=== PATIENT | male | born 1980 | race Caucasian/White ===

== ENCOUNTER 2017-01-28 09:28 | Emergency (ER) | payer MEDICAID ==
[2017-01-28 09:45] VITALS: BP 160/94
[2017-01-28] MEDS ORDERED: Alum Hydrox/Mag Hydrox/Simeth 15 ML, Lidocaine 2% 15 ML PO ONE ×2 (09:56)
--- NOTE | 2017-01-28 09:59 | EDM.PDOC ---
[id number] Time Seen by Provider: 01/28/17 09:53 Source: Reports: Patient, Family History Limitations: Reports: No limitations - History of Present Illness INITIAL COMMENTS - FREE TEXT/NARRATIVE: 36-year-old male with intense pain on the right side of his throat, but 2 or 3/ 10 when at rest but increases to 8 or 9 while swallowing. He had a recent prolonged sinus congestion with postnasal drip but that seems to have improved. No cough or shortness of breath, denies any fever or chills. No trauma to the throat such as a scratch from food or foreign body. No nausea or vomiting. Severity: moderate Location: Reports: throat Quality: Reports: Sharp Improves with: Reports: Rest Worsens with: Reports: Other (Marked increase in pain with swallowing) Associated symptoms: Reports: other (No significant or appreciable voice change) . Denies: headaches, shortness of breath, cough, sputum, nausea/vomiting - Related Data Allergies/ADRs: Allergies Allergy/AdvReac Type Severity Reaction Status Date / Time amoxicillin trihydrate Allergy Rash Verified 01/10/16 00:10 [From Augmentin] cefaclor [From Ceclor] Allergy Rash Verified 01/10/16 00:10 erythromycin base Allergy Rash Verified 01/10/16 00:10 [Erythromycin Base] potassium clavulanate Allergy Rash Verified 01/10/16 00:10 [From Augmentin] azithromycin AdvReac Vomiting Verified 01/10/16 00:10 Home Meds: Home Meds Venlafaxine [Effexor] 75 mg PO BEDTIME 01/07/15 [History] Albuterol Sulfate [Proair Hfa] 8.5 gm IH Q4HR PRN 01/10/16 [History] Cholecalciferol (Vitamin D3) [Vitamin D] 5,000 unit PO DAILY 01/10/16 [History] Ergocalciferol (Vitamin D2) [Vitamin D2] 50,000 units PO DAILY 01/10/16 [History ] Fluticasone/Salmeterol [Advair Diskus 100-50] 1 puff INH BID 01/10/16 [History] Ibuprofen 800 mg PO Q8H PRN 01/10/16 [History] busPIRone [Buspar] 5 mg PO TID 01/10/16 [History] Past Medical History - Past Health History Medical/Surgical History: Denies Medical/Surgical History Cardiovascular History: Reports: Hypertension Respiratory History: Reports: Asthma Musculoskeletal History: Reports: Fracture, Other (see below) Other Musculoskeletal History: Nose fracture "89 Neurological History: Reports: Concussion Psychiatric History: Reports: Depression Endocrine/Metabolic History: Reports: Obesity/BMI 30+ - Infectious Disease History Infectious Disease History: Reports: Chicken pox - Past Surgical History GI Surgical History: Reports: Cholecystectomy Social & Family History - Tobacco Use Smoking Status *Q: Never Smoker Years of Tobacco use: 8 Packs/Tins Daily: 0.5 Used Tobacco, but Quit: No Second Hand Smoke Exposure: No - Caffeine Use Caffeine Use: Reports: Energy drinks - Alcohol Use Days Per Week of Alcohol Use: 0 Number of Drinks Per Day: 1 Total Drinks Per Week: 0 - Recreational Drug Use Recreational Drug Use: No ED ROS ENT - Review of Systems Review Of Systems: See Below Constitutional: Denies: fever (Denies a fever, but currently his temperature is 100.4), chills, malaise, weakness HEENT: Reports: Throat pain Respiratory: Denies: Shortness of Breath, Cough Cardiovascular: Denies: Chest pain GI/Abdominal: Denies: Abdominal pain, Nausea, Vomiting Skin: Reports: no symptoms Neurological: Reports: No Symptoms ED EXAM, ENT - Physical Exam Exam: See Below Exam Limited By: No limitations General Appearance: alert, no apparent distress Eye Exam: bilateral eye: normal inspection Mouth/Throat: Other (Patient has some posterior pharyngeal erythema on the posterior lateral aspects, worse on the right) Neck: No: lymphadenopathy (R), lymphadenopathy (L) Respiratory/Chest: no respiratory distress, lungs clear Cardiovascular: regular rate, rhythm Neurological: alert, oriented Psychiatric: normal affect, normal mood Skin: Warm, Dry Course - Vital Signs Last Recorded V/S: Last Vital Signs Temp 100.4 F 01/28/17 09:45 Pulse 90 01/28/17 09:45 Resp 18 01/28/17 09:45 BP 160/94 H 01/28/17 09:45 Pulse Ox 95 01/28/17 09:45 - Orders/Labs/Meds Orders: Active Orders 24 hr Category Date Time Status CULTURE STREP A CONFIRMATION [RM] Routine Lab 01/28/17 09:59 Results STREP SCRN A RAPID W CULT CONF [RM] Routine Lab 01/28/17 09:59 Results Meds: Medications Discontinued Medications Generic Name Dose Route Start Last Admin Trade Name Rodri PRN Reason Stop Dose Admin Al Hydroxide/Mg Hydroxide 15 0 ml 01/28/17 09:56 01/28/17 09:59 ml/ Lidocaine HCl 15 ml PO 01/28/17 09:57 15 ml ONETIME ONE Administration - Re-Assessments/Exams Free Text/Narrative Re-Assessment/Exam: 01/28/17 10:12 Patient was given a GI cocktail for the topical anesthetic effect and a rapid strep was obtained prior to the medication. 01/28/17 10:25 Rapid strep was negative. GI cocktail gave him a small amount of subjective improvement. Patient will be discharged with 100 mL of viscous lidocaine to use as needed for pain and a course of Zithromax to cover atypicals. He'll return if worsening over the next several days. Departure - Departure Time of Disposition: 10:35 Disposition: Home, Self-Care 01 Condition: good Clinical Impression: Pharyngitis Qualifiers: Pharyngitis/tonsillitis etiology: other specified organisms Qualified Code(s): J02.8 - Acute pharyngitis due to other specified organisms Instructions: Sore Throat, [id number] Referrals: PCP,None [Primary Care Provider] - Forms: ED Department Discharge Care Plan Goals: Drink lots of fluids, take antibiotic as prescribed and use viscous lidocaine as needed for pain. Ibuprofen or naproxen will likely help as well. Consider rechecking in 3-4 days if not improving satisfactorily, or return anytime sooner if worsening such as difficulty breathing, fever, or inability to swallow. - My Orders Last 24 Hours: My Active Orders 01/28/17 09:59 CULTURE STREP A CONFIRMATION [RM] Routine STREP SCRN A RAPID W CULT CONF [RM] Routine - Assessment/Plan Last 24 Hours: My Active Orders 01/28/17 09:59 CULTURE STREP A CONFIRMATION [RM] Routine STREP SCRN A RAPID W CULT CONF [] Routine
== END 2017-01-28 10:35 | disposition home or self-care (01) ==
LOC: JP.ED 09:28
DX: J02.8 Acute pharyngitis due to other specified organisms (principal); I10 Essential (primary) hypertension; J45.909 Unspecified asthma, uncomplicated; F32.9 Major depressive disorder, single episode, unspecified; E66.9 Obesity, unspecified; Z68.41 Body mass index [BMI] 40.0-44.9, adult; Z90.49 Acquired absence of other specified parts of digestive tract; Z79.899 Other long term (current) drug therapy; Z88.1 Allergy status to other antibiotic agents; Z88.8 Allergy status to other drugs, medicaments and biological substances
CPT/HCPCS: 87081; 87430; 99283; A9270

== ENCOUNTER 2017-04-16 05:45 | Day surgery (SDC) | payer MEDICAID ==
[2017-04-16] MEDS ORDERED: fentaNYL 100 MCG/2 ML SDV ONE (07:30)
[2017-04-16] MEDS ORDERED: Propofol 200 MG/20 ML SDV ONE (07:30)
[2017-04-16] MEDS ORDERED: Dextrose 5%-Lactated Ringers 1,000 ML IV SCH (07:30)
[2017-04-16] MEDS ORDERED: Midazolam 1 MG/ML 2 ML SDV ONE (07:30)
[2017-04-16 10:03] VITALS: BP 149/100
--- NOTE | 2017-04-23 11:08 | OR ---
DATE OF PROCEDURE: 04/16/2017 PREOPERATIVE DIAGNOSIS: Rectal bleeding. POSTOPERATIVE DIAGNOSIS: Rectal bleeding secondary to excoriated hemorrhoids. OPERATIVE PROCEDURE: 1. Flexible colonoscopy (40895). 2. Hemorrhoid banding x2 (52359). ANESTHESIA: IV sedation. INDICATIONS FOR PROCEDURE: A 36-year-old male presenting with some ongoing rectal bleeding. This by history is most likely hemorrhoidal in nature, but no other pathology if colonoscopy is undertaken and then likely proceed with hemorrhoid banding. Potential risks including bleeding, infection, possible perforation as well as possible pain following hemorrhoid banding were all reviewed, and the patient wishes to proceed. DETAILS OF PROCEDURE: The patient was taken to the operating room and placed in the left lateral decubitus position. IV sedation was administered after which the initial digital rectal exam was performed and was unremarkable. Colonoscope was then passed into the rectum. Retroflexion showed more or less diffusely excoriated hemorrhoids. There was no obvious bleeding or single hemorrhoid column that appeared to be especially problematic in terms of likely bleeding source, however, the scope was then eventually passed to the level of the cecum. The prep was quite good with there only being a small amount of liquid stool present to that level. No additional abnormalities were noted. Specifically, no diverticula, no areas of colitis, and no polyps or other signs of neoplasia and no blood or bleeding seen. The scope was then withdrawn and the above findings reconfirmed and colonoscopy phase was then completed. The anoscope was then passed and two of the most prominent hemorrhoid columns were then sequentially banded without difficulty. Care was taken to maintain the level of banding above the dentate line to minimize postoperative discomfort and both bands were found to be nicely in place at the conclusion of the procedure. The patient was taken to the recovery room in satisfactory condition. Lavon Mccloud MD /[id number]
== END 2017-04-16 09:55 | disposition home or self-care (01) ==
LOC: JP.SDS 05:45
PROVIDERS: ATTEND Surgery
PROC: 06LY4CC Occlusion of Hemorrhoidal Plexus with Extraluminal Device, Percutaneous Endoscopic Approach (ICD-10-PCS; principal; 2017-04-16)
DX: K64.8 Other hemorrhoids (principal); R19.7 Diarrhea, unspecified; K92.1 Melena
CPT/HCPCS: 36415; 45398; 85027; J2250; J2704; J3010; J7042

== ENCOUNTER 2017-06-03 06:09 | Emergency (ER) | payer MEDICAID ==
[2017-06-03] MEDS ORDERED: Aspirin 81 MG Tab.Chew ONE (06:31)
[2017-06-03] MEDS ORDERED: Aspirin 81 MG Tab.Chew PO ONE (06:34)
[2017-06-03] MEDS ORDERED: Nitroglycerin 0.4 MG Tab.SL ONE (06:48)
[2017-06-03] MEDS ORDERED: Nitroglycerin 0.4 MG Tab.SL SL ONE (06:49)
[2017-06-03] MEDS ORDERED: Sodium Chloride 0.9% 10 ML Syringe FLUSH PRN (07:07)
--- NOTE | 2017-06-03 07:27 | EDM.PDOC ---
ED HPI GENERAL MEDICAL PROBLEM - General Chief Complaint: General Stated Complaint: LEFT ARM AND SOME CHEST PAIN Time Seen by Provider: 06/03/17 06:49 Source of Information: Reports: Patient History Limitations: Reports: No Limitations - History of Present Illness INITIAL COMMENTS - FREE TEXT/NARRATIVE: 29-year-old male with anxiety, past history of pleurisy woke up at 1:00 this morning with a sharp left-sided chest pain that hurt when he took a breath. No cough or fever. No abdominal pain, nausea or vomiting. Onset: Unknown/Unsure (Woke with pain at 1 AM) Location: Reports: Chest (Left chest) Severity: Moderate Worsens with: Reports: Breathing Associated Symptoms: Reports: No Other Symptoms (No other symptoms except anxiety, being treated for hypertension) - Related Data Allergies Allergy/AdvReac Type Severity Reaction Status Date / Time amoxicillin trihydrate Allergy Rash Verified 04/16/17 06:55 [From Augmentin] cefaclor [From Ceclor] Allergy Rash Verified 04/16/17 06:55 erythromycin base Allergy Rash Verified 04/16/17 06:55 [Erythromycin Base] potassium clavulanate Allergy Rash Verified 04/16/17 06:55 [From Augmentin] azithromycin AdvReac Vomiting Verified 04/16/17 06:55 Home Meds: Home Meds Venlafaxine [Effexor] 75 mg PO BEDTIME 01/07/15 [History] Albuterol Sulfate [Proair Hfa] 8.5 gm IH Q4HR PRN 01/10/16 [History] Ibuprofen 800 mg PO Q8H PRN 01/10/16 [History] busPIRone [Buspar] 5 mg PO DAILY 01/10/16 [History] Hydrochlorothiazide 06/03/17 [History] Past Medical History - Past Health History Medical/Surgical History: Denies Medical/Surgical History HEENT History: Reports: Allergic Rhinitis Cardiovascular History: Reports: Hypertension Respiratory History: Reports: Asthma, Bronchitis, Recurrent Gastrointestinal History: Reports: Hemorrhoids Musculoskeletal History: Reports: Fracture, Other (See Below) Other Musculoskeletal History: Nose fracture "89 Neurological History: Reports: Concussion Psychiatric History: Reports: Depression Endocrine/Metabolic History: Reports: Obesity/BMI 30+ - Infectious Disease History Infectious Disease History: Reports: Chicken Pox, Shingles - Past Surgical History HEENT Surgical History: Reports: None Cardiovascular Surgical History: Reports: None Respiratory Surgical History: Reports: None GI Surgical History: Reports: Cholecystectomy, EGD Endocrine Surgical History: Reports: None Neurological Surgical History: Reports: None Musculoskeletal Surgical History: Reports: None Social & Family History - Tobacco Use Smoking Status *Q: Never Smoker Years of Tobacco use: 8 Packs/Tins Daily: 0.5 Used Tobacco, but Quit: No Second Hand Smoke Exposure: No - Caffeine Use Caffeine Use: Reports: Soda - Alcohol Use Days Per Week of Alcohol Use: 1 Number of Drinks Per Day: 6 Total Drinks Per Week: 6 - Recreational Drug Use Recreational Drug Use: No ED ROS GENERAL - Review of Systems Review Of Systems: See Below Constitutional: Denies: Fever, Chills, Malaise Respiratory: Reports: Pleuritic Chest Pain. Denies: Shortness of Breath, Cough Cardiovascular: Reports: Chest Pain GI/Abdominal: Denies: Abdominal Pain, Nausea, Vomiting Skin: Reports: No Symptoms Neurological: Denies: Headache Psychiatric: Reports: No Symptoms ED EXAM, GENERAL - Physical Exam Exam: See Below Exam Limited By: No Limitations General Appearance: Alert, No Apparent Distress Eye Exam: Bilateral Eye: Normal Inspection Respiratory/Chest: No Respiratory Distress, Lungs Clear, Other (Cannot reproduce chest wall tenderness with palpation) Cardiovascular: Regular Rate, Rhythm GI/Abdominal: Non-Tender, Other (Patient is obese) Neurological: Alert, Oriented Psychiatric: Anxious Skin Exam: Warm, Dry EKG INTERPRETATION Rhythm: NSR Course - Vital Signs Last Recorded V/S: Last Vital Signs Temp 98.6 F 06/03/17 06:59 Pulse 101 H 06/03/17 08:06 Resp 16 06/03/17 08:06 BP 163/107 H 06/03/17 08:06 Pulse Ox 99 06/03/17 08:06 - Orders/Labs/Meds Orders: Active Orders 24 hr Category Date Time Status EKG Documentation Completion [RC] ASDIRECTED Care 06/03/17 07:08 Active Chest 1V Frontal [CR] Urgent Exams 06/03/17 07:07 Taken Saline Lock Insert [OM.PC] Urgent Oth 06/03/17 07:07 Ordered EKG 12 Lead [EK] Urgent Ther 06/03/17 07:07 Ordered Labs: Laboratory Tests 06/03/17 06/03/17 06/03/17 Range/Units 07:07 07:07 07:07 WBC 8.6 (4.5-11.0) K/uL RBC 5.21 (4.30-5.90) M/uL Hgb 15.9 H (12.0-15.0) g/dL Hct 47.6 (40.0-54.0) % MCV 91 (80-98) fL MCH 31 (27-31) pg MCHC 33 (32-36) % Plt Count 218 (150-400) K/uL Neut % (Auto) 72 H (36-66) % Lymph % (Auto) 20 L (24-44) % [place] % (Auto) 6 (2-6) % Eos % (Auto) 1 L (2-4) % Baso % (Auto) 1 (0-1) % D-Dimer, Quantitative < 100 (0.0-400.0) ng/mL Sodium 141 (140-148) mmol/L Potassium 4.1 (3.6-5.2) mmol/L Chloride 108 (100-108) mmol/L Carbon Dioxide 25 (21-32) mmol/L Anion Gap 8.0 (5.0-14.0) mmol/L BUN 13 (7-18) mg/dL Creatinine 1.2 (0.8-1.3) mg/dL Est Cr Clr Drug Dosing 97.04 mL/min Estimated GFR (MDRD) > 60 (>60) Glucose 125 H (74-106) mg/dL Calcium 8.7 (8.5-10.1) mg/dL Total Bilirubin 0.5 D (0.2-1.0) mg/dL AST 21 (15-37) U/L ALT 57 (12-78) U/L Alkaline Phosphatase 48 (46-116) U/L Troponin I < 0.017 (0.000-0.056) ng/mL Total Protein 7.1 (6.4-8.2) g/dL Albumin 3.6 (3.4-5.0) g/dL Globulin 3.5 (2.3-3.5) g/dL Albumin/Globulin Ratio 1.0 L (1.2-2.2) Meds: Medications Discontinued Medications Generic Name Dose Route Start Last Admin Trade Name Freq PRN Reason Stop Dose Admin Aspirin Confirm 06/03/17 06:31 06/03/17 07:09 Aspirin Administered 06/03/17 06:32 Not Given Dose 324 mg .ROUTE .STK-MED ONE Aspirin 324 mg 06/03/17 06:34 06/03/17 06:33 Aspirin PO 06/03/17 06:35 324 mg ONETIME ONE Administration Nitroglycerin 0.4 mg 06/03/17 06:49 06/03/17 06:51 Nitrostat SL 06/03/17 06:50 0.4 mg ONETIME ONE Administration Nitroglycerin Confirm 06/03/17 06:48 06/03/17 07:08 Nitrostat Administered 06/03/17 06:49 Not Given Dose 0.4 mg .ROUTE .STK-MED ONE Sodium Chloride 10 ml 06/03/17 07:07 06/03/17 07:14 Saline Flush FLUSH 10 ml ASDIRECTED PRN Administration Keep Vein Open - Re-Assessments/Exams Free Text/Narrative Re-Assessment/Exam: 06/03/17 07:52 Patient was given aspirin nitroglycerin and an EKG was done which was normal for his age and unchanged from previous. CBC CMP d-dimer and portable chest x- ray were obtained which were all reassuring are negative. Patient was encouraged to take an anti-inflammatory for the next few days to treat pleuritic pain, avoid any extra salt intake and continue with his antihypertensive medications which she was just started on a week ago. His blood pressure did normalize while in the emergency room but still was above acceptable levels chronically. Initial level was 157/110, on discharge 146/87 Departure - Departure Time of Disposition: 08:07 Disposition: Home, Self-Care 01 Condition: Good Clinical Impression: Pleurisy, Atypical chest pain - Discharge Information Instructions: Pleurisy, [id number] Referrals: PCP,None [Primary Care Provider] - Forms: ED Department Discharge Care Plan Goals: Increase activity as tolerated and continue your regular medications. An anti- inflammatory such as ibuprofen or naproxen should help for the next couple of days. Return if worsening or concerns.
[2017-06-03 08:07] VITALS: BP 163/107
--- NOTE | 2017-06-04 10:50 | CR ---
Chest 1V Frontal INDICATION: pain FINDINGS: Comparison 09/17/2014. Shallow inspiration. Chest otherwise negative.
== END 2017-06-03 08:07 | disposition home or self-care (01) ==
LOC: JP.ED 06:09
DX: R09.1 Pleurisy (principal); I10 Essential (primary) hypertension; J45.909 Unspecified asthma, uncomplicated; E66.9 Obesity, unspecified; Z90.49 Acquired absence of other specified parts of digestive tract; Z79.899 Other long term (current) drug therapy; Z88.1 Allergy status to other antibiotic agents; Z88.8 Allergy status to other drugs, medicaments and biological substances
CPT/HCPCS: 36415; 71010; 80053; 84484; 85025; 85379; 93005; 99285; A9270; J7050

== ENCOUNTER 2017-09-21 01:06 | Emergency (ER) | payer MEDICAID ==
[2017-09-21 01:33] VITALS: BP 148/94
[2017-09-21] MEDS ORDERED: Lactated Ringers 1,000 ML IV ONE (01:55)
[2017-09-21] MEDS ORDERED: Ketorolac 30 MG/ML SDV IVPUSH ONE (01:56)
[2017-09-21] MEDS ORDERED: diphenhydrAMINE 50 MG/ML SDV IVPUSH ONE (01:56)
[2017-09-21] MEDS ORDERED: Prochlorperazine 10 MG/2 ML SDV IVPUSH ONE (01:56)
--- NOTE | 2017-09-21 02:03 | EDM.PDOC ---
ED HPI GENERAL MEDICAL PROBLEM - General Chief Complaint: Headache Stated Complaint: MIGRAINE Time Seen by Provider: 09/21/17 01:50 Source of Information: Reports: Patient History Limitations: Reports: No Limitations - History of Present Illness INITIAL COMMENTS - FREE TEXT/NARRATIVE: 37 yo male with a more or less continuous MARTIN since last . Toradol in the clinic last reduced the MARTIN enough so he could sleep. MARTIN on the R side. Some nausea. No fever or neck pain. Has light sensitivity. Had not had a MARTIN since age 16 until this week. No recent head injury. No relief with ibuprofen, MARTIN worse tonight. Onset Date: 09/18/17 Duration: Day(s):, Waxing/Waning Location: Reports: Head Quality: Reports: Ache Severity: Severe Improves with: Reports: None Worsens with: Reports: None Context: Reports: Other (unknown) Associated Symptoms: Reports: Headaches, Nausea/Vomiting, Shortness of Breath ( for a few minutes tonight about 30 min before his headache flared.). Denies: Fever/Chills Treatments INSTRUCTOR DECORATING: Reports: NSAIDS, Other (see below) Other Treatments INSTRUCTOR DECORATING: none Head Pain Score (Numeric/FACES): 10 - Related Data Allergies Allergy/AdvReac Type Severity Reaction Status Date / Time amoxicillin trihydrate Allergy Rash Verified 09/21/17 01:58 [From Augmentin] cefaclor [From Ceclor] Allergy Rash Verified 09/21/17 01:58 erythromycin base Allergy Rash Verified 09/21/17 01:58 [Erythromycin Base] potassium clavulanate Allergy Rash Verified 09/21/17 01:58 [From Augmentin] azithromycin AdvReac Vomiting Verified 09/21/17 01:58 Home Meds: Home Meds Albuterol Sulfate [Proair Hfa] 8.5 gm IH Q4HR PRN 01/10/16 [History] Ibuprofen 800 mg PO Q8H PRN 01/10/16 [History] Acetaminop/Dichlphn/Isomethept [Midrin 325-100-65 MG] 1 cap PO ASDIRECTED #14 cap 09/21/17 [Rx] Aspirin [Adult Low Dose Aspirin EC] 81 mg PO DAILY 09/21/17 [History] Cyclobenzaprine [Flexeril] 10 mg PO TID PRN 09/21/17 [History] Escitalopram [Lexapro] 10 mg PO DAILY 09/21/17 [History] Lisinopril [Prinivil] 40 mg PO DAILY 09/21/17 [History] traMADol [Ultram] 50 mg PO Q6H PRN 09/21/17 [History] Past Medical History - Past Health History Medical/Surgical History: Denies Medical/Surgical History HEENT History: Reports: Allergic Rhinitis Cardiovascular History: Reports: Hypertension Respiratory History: Reports: Asthma, Bronchitis, Recurrent Gastrointestinal History: Reports: Hemorrhoids Musculoskeletal History: Reports: Fracture, Other (See Below) Other Musculoskeletal History: Nose fracture "89 Neurological History: Reports: Concussion Psychiatric History: Reports: Depression Endocrine/Metabolic History: Reports: Obesity/BMI 30+ - Infectious Disease History Infectious Disease History: Reports: Chicken Pox - Past Surgical History HEENT Surgical History: Reports: None Cardiovascular Surgical History: Reports: None Respiratory Surgical History: Reports: None GI Surgical History: Reports: Cholecystectomy, EGD Endocrine Surgical History: Reports: None Neurological Surgical History: Reports: None Musculoskeletal Surgical History: Reports: None Social & Family History - Tobacco Use Smoking Status *Q: Never Smoker Years of Tobacco use: 8 Packs/Tins Daily: 0.5 Used Tobacco, but Quit: No Second Hand Smoke Exposure: No - Caffeine Use Caffeine Use: Reports: Soda - Alcohol Use Days Per Week of Alcohol Use: 1 Number of Drinks Per Day: 6 Total Drinks Per Week: 6 - Recreational Drug Use Recreational Drug Use: Yes ED ROS GENERAL - Review of Systems Review Of Systems: See Below Constitutional: Reports: No Symptoms HEENT: Reports: Other (photophobia) Respiratory: Reports: No Symptoms Cardiovascular: Reports: No Symptoms GI/Abdominal: Reports: Nausea. Denies: Abdominal Pain, Black Stool, Bloody Stool, Constipation, Diarrhea, Difficulty Swallowing, Distension, Flatus, Hematemesis, Hematochezia, Melena, Vomiting : Reports: No Symptoms Musculoskeletal: Reports: No Symptoms Skin: Reports: No Symptoms Neurological: Reports: Headache Psychiatric: Reports: No Symptoms - Physical Exam Exam: See Below Exam Limited By: No Limitations General Appearance: Alert, WD/WN, No Apparent Distress, Obese Eye Exam: Bilateral Eye: Normal Inspection, PERRL Ears: Normal External Exam, Normal Canal, Hearing Grossly Normal, Normal TMs Nose: Normal Inspection, Normal Mucosa, No Blood Throat/Mouth: Normal Inspection, Normal Lips, Normal Teeth, Normal Oropharynx, Normal Voice, No Airway Compromise Head Exam: Atraumatic, Normocephalic Neck: Normal Inspection, Supple, Non-Tender Respiratory/Chest: No Respiratory Distress, Lungs Clear, Normal Breath Sounds, No Accessory Muscle Use Cardiovascular: Regular Rate, Rhythm, No Edema GI/Abdominal: Normal Bowel Sounds, Soft, Non-Tender, No Distention (Male) Exam: Normal Inspection Neuro Exam (Abbreviated): Alert, Oriented, CN II-XII Intact, Normal Cognition, No Motor/Sensory Deficits Back Exam: Normal Inspection. No: CVA Tenderness (R), CVA Tenderness (L) Extremities: Normal Inspection, Normal Range of Motion, Non-Tender, No Pedal Edema Psychiatric: Normal Affect, Normal Mood Skin Exam: Warm, Dry, Intact, Normal Color, No Rash Course - Vital Signs Last Recorded V/S: Last Vital Signs Temp 36.4 C 09/21/17 01:30 Pulse 95 09/21/17 01:30 Resp 17 09/21/17 01:30 BP 148/94 H 09/21/17 01:30 Pulse Ox 95 09/21/17 01:30 - Orders/Labs/Meds Orders: Active Orders 24 hr Category Date Time Status Head wo Cont [CT] Stat Exams 09/21/17 01:56 Taken Meds: Medications Discontinued Medications Generic Name Dose Route Start Last Admin Trade Name Rodri PRN Reason Stop Dose Admin Diphenhydramine HCl 25 mg 09/21/17 01:56 09/21/17 02:19 Benadryl IVPUSH 09/21/17 01:57 25 mg ONETIME ONE Administration Lactated Ringer's 1,000 mls @ 1,000 mls/hr 09/21/17 01:55 09/21/17 02:12 Ringers, Lactated IV 09/21/17 02:54 1,000 mls/hr BOLUS ONE Administration Ketorolac Tromethamine 30 mg 09/21/17 01:56 09/21/17 02:22 Toradol IVPUSH 09/21/17 01:57 30 mg ONETIME ONE Administration Prochlorperazine Edisylate 10 mg 09/21/17 01:56 09/21/17 02:14 Compazine IVPUSH 09/21/17 01:57 10 mg ONETIME ONE Administration - Radiology Interpretation Free Text/Narrative:: negative head CT scan CT Results Date: 09/21/17 CT Results Time: 03:00 Departure - Departure Time of Disposition: 03:30 Disposition: Home, Self-Care 01 Condition: Fair Clinical Impression: Migraine - Discharge Information Prescriptions: Acetaminop/Dichlphn/Isomethept [Midrin 325-100-65 MG] 1 cap PO ASDIRECTED #14 cap Referrals: Darshan Deluna MD [Primary Care Provider] - Forms: ED Department Discharge Additional Instructions: Use Midrin as directed for MARTIN. Recheck with your provider jared in the clinic. If you cannot get the Midrin or it does not work, then try Aleve 2 every 8 hrs with food as needed OR Excedrin Migraine per package instructions. Drink ample fluids. No driving tonight. - My Orders Last 24 Hours: My Active Orders 09/21/17 01:56 Head wo Cont [CT] Stat - Assessment/Plan Last 24 Hours: My Active Orders 09/21/17 01:56 Head wo Cont [CT] Stat
== END 2017-09-21 03:40 | disposition home or self-care (01) ==
LOC: JP.ED 01:06
DX: G43.909 Migraine, unspecified, not intractable, without status migrainosus (principal); J45.909 Unspecified asthma, uncomplicated; Z79.899 Other long term (current) drug therapy; Z88.1 Allergy status to other antibiotic agents; Z88.8 Allergy status to other drugs, medicaments and biological substances
CPT/HCPCS: 70450; 96361; 96374; 96375; 99284; J0780; J1200; J1885; J7120

== ENCOUNTER 2017-12-11 20:22 | Emergency (ER) | payer MEDICAID ==
[2017-12-11] MEDS ORDERED: Sodium Chloride 0.9% 10 ML Syringe FLUSH PRN (21:24)
--- NOTE | 2017-12-11 21:30 | EDM.PDOC ---
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 However no other symptoms. Was thinking at the lesion, this evening, and as he was leaving to go he started developing some chest and abdominal pain. He felt the need to go the bathroom so on the drive home, stopped his house where he passed loose stool which is usual for him and urinated but felt no better. It felt like still spikes were being given through each side of his chest with some radiation down into the abdomen. Associated with nausea but no retching, slight involvement of the back. He felt weak, finding it hard to get out of the car and move around. He did not notice any shortness of breath or change in the pain with breathing. Discomfort has continued but now feels like a dull ache on each side his chest becoming sharper is pain goes down into the abdomen. He has a history of previous cholecystectomy and previous kidney stone passed spontaneously in the clinic. Seen in May of last year for chest pain which was diagnosed with pleurisy, d- dimer at that time was negative. 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 His mom had peripheral vascular disease with arterial clots as well as an infarction and there is a strong family history of pancreatitis. Does not smoke but chews tobacco. bilateral chest pain and abdomen pain Pain Score (Numeric/FACES): 10 - Related Data Allergies Allergy/AdvReac Type Severity Reaction Status Date / Time amoxicillin trihydrate Allergy Rash Verified 12/11/17 20:35 [From Augmentin] cefaclor [From Ceclor] Allergy Rash Verified 12/11/17 20:35 erythromycin base Allergy Rash Verified 12/11/17 20:35 [Erythromycin Base] potassium clavulanate Allergy Rash Verified 12/11/17 20:35 [From Augmentin] azithromycin AdvReac Vomiting Verified 12/11/17 20:35 Home Meds: Home Meds Albuterol Sulfate [Proair Hfa] 8.5 gm IH Q4HR PRN 01/10/16 [History] Ibuprofen 800 mg PO Q8H PRN 01/10/16 [History] Acetaminop/Dichlphn/Isomethept [Midrin 325-100-65 MG] 1 cap PO ASDIRECTED #14 cap 09/21/17 [Rx] Cyclobenzaprine [Flexeril] 10 mg PO TID PRN 09/21/17 [History] Escitalopram [Lexapro] 10 mg PO DAILY 09/21/17 [History] Lisinopril [Prinivil] 40 mg PO DAILY 09/21/17 [History] traMADol [Ultram] 50 mg PO Q6H PRN 09/21/17 [History] Past Medical History - Past Health History Medical/Surgical History: Denies Medical/Surgical History HEENT History: Reports: Allergic Rhinitis Cardiovascular History: Reports: Hypertension Respiratory History: Reports: Asthma, Bronchitis, Recurrent Gastrointestinal History: Reports: Chronic Diarrhea, Hemorrhoids Musculoskeletal History: Reports: Fracture, Other (See Below) Other Musculoskeletal History: Nose fracture "89 Neurological History: Reports: Concussion Psychiatric History: Reports: Anxiety, Depression Endocrine/Metabolic History: Reports: Obesity/BMI 30+ - Infectious Disease History Infectious Disease History: Reports: Chicken Pox - Past Surgical History HEENT Surgical History: Reports: None Cardiovascular Surgical History: Reports: None Respiratory Surgical History: Reports: None GI Surgical History: Reports: Cholecystectomy, EGD Endocrine Surgical History: Reports: None Neurological Surgical History: Reports: None Musculoskeletal Surgical History: Reports: None Social & Family History - Tobacco Use Smoking Status *Q: Never Smoker Years of Tobacco use: 8 Packs/Tins Daily: 0.5 Used Tobacco, but Quit: No Second Hand Smoke Exposure: No - Caffeine Use Caffeine Use: Reports: Soda - Alcohol Use Days Per Week of Alcohol Use: 1 Number of Drinks Per Day: 6 Total Drinks Per Week: 6 Date of Last Drink: 12/11/17 - Recreational Drug Use Recreational Drug Use: No ED ROS GENERAL - Review of Systems Review Of Systems: See Below Constitutional: Reports: Malaise, Fatigue. Denies: Fever, Diaphoresis HEENT: Reports: No Symptoms Respiratory: Reports: Other (Chest pain, not pleuritic). Denies: Shortness of Breath, Cough Cardiovascular: Reports: Chest Pain (See history of present illness). Denies: Dyspnea on Exertion, Edema, Lightheadedness Endocrine: Reports: Fatigue GI/Abdominal: Reports: Abdominal Pain, Diarrhea (Chronic since his cholecystectomy), Nausea. Denies: Constipation, Decreased Appetite, Vomiting : Reports: No Symptoms Musculoskeletal: Reports: No Symptoms Skin: Reports: No Symptoms Neurological: Reports: Difficulty Walking, Other (Weak and tired, making it hard to walk). Denies: Confusion, Change in Speech Psychiatric: Reports: No Symptoms Hematologic/Lymphatic: Reports: No Symptoms Immunologic: Reports: No Symptoms ED EXAM, GENERAL - Physical Exam Exam: See Below Exam Limited By: No Limitations General Appearance: Alert, Anxious, Mild Distress, Other (Odor of alcohol, elevated blood pressure, other vital signs normal, no difficulty speaking or breathing) Eye Exam: Bilateral Eye: Conjunctival Injection (Mild bilateral), EOMI Ears: Normal External Exam, Hearing Grossly Normal Nose: Normal Inspection Throat/Mouth: Normal Inspection, Normal Oropharynx Head: Atraumatic, Normocephalic Neck: Normal Inspection, Full Range of Motion. No: Lymphadenopathy (R), Lymphadenopathy (L) Respiratory/Chest: No Respiratory Distress, Lungs Clear, Normal Breath Sounds, No Accessory Muscle Use, Other (Mild chest tenderness) Cardiovascular: Normal Peripheral Pulses, Regular Rate, Rhythm, No Murmur GI/Abdominal: Normal Bowel Sounds, Soft, No Distention, Tender, Other. No: Rigid, Rebound Back Exam: Normal Inspection Extremities: Normal Inspection Neurological: Alert, No Motor/Sensory Deficits Psychiatric: Anxious Skin Exam: Warm, Dry, Intact, Normal Color, No Rash Course - Vital Signs Last Recorded V/S: Last Vital Signs Temp 36.8 C 12/11/17 20:24 Pulse 82 12/11/17 22:35 Resp 12 12/11/17 22:35 BP 150/94 H 12/11/17 22:35 Pulse Ox 98 12/11/17 22:35 - Orders/Labs/Meds Orders: Active Orders 24 hr Category Date Time Status EKG Documentation Completion [RC] ASDIRECTED Care 12/11/17 21:33 Active Chest 1V Frontal [CR] Stat Exams 12/11/17 21:24 Taken Saline Lock Insert [OM.PC] Stat Oth 12/11/17 21:23 Ordered EKG 12 Lead [EK] Routine Ther 12/11/17 21:33 Ordered Labs: Laboratory Tests 12/11/17 12/11/17 12/11/17 Range/Units 21:34 21:34 21:34 WBC 7.4 (4.5-11.0) K/uL RBC 5.22 (4.30-5.90) M/uL Hgb 16.0 H (12.0-15.0) g/dL Hct 47.9 (40.0-54.0) % MCV 92 (80-98) fL MCH 31 (27-31) pg MCHC 33 (32-36) % Plt Count 195 (150-400) K/uL D-Dimer, Quantitative < 100 (0.0-400.0) ng/mL Sodium 144 (140-148) mmol/L Potassium 4.2 (3.6-5.2) mmol/L Chloride 107 (100-108) mmol/L Carbon Dioxide 30 (21-32) mmol/L Anion Gap 7.2 (5.0-14.0) mmol/L BUN 11 (7-18) mg/dL Creatinine 1.0 (0.8-1.3) mg/dL Est Cr Clr Drug Dosing 116.45 mL/min Estimated GFR (MDRD) > 60 (>60) Glucose 87 (74-106) mg/dL Calcium 8.6 (8.5-10.1) mg/dL Total Bilirubin 0.2 D (0.2-1.0) mg/dL AST 29 (15-37) U/L ALT 66 (12-78) U/L Alkaline Phosphatase 57 (46-116) U/L Troponin I < 0.017 (0.000-0.056) ng/mL Total Protein 6.7 (6.4-8.2) g/dL Albumin 3.6 (3.4-5.0) g/dL Globulin 3.1 (2.3-3.5) g/dL Albumin/Globulin Ratio 1.2 (1.2-2.2) Lipase 107 (73-393) U/L Urine Color Urine Appearance Urine pH (4.5-8.0) Ur Specific [place] (1.008-1.030) Urine Protein (NEGATIVE) mg/dL Urine Glucose (UA) (NEGATIVE) mg/dL Urine Ketones (NEGATIVE) mg/dL Urine Occult Blood (NEGATIVE) Urine Nitrite (NEGAITVE) Urine Bilirubin (NEGATIVE) Urine Urobilinogen (NORMAL) mg/dL Ur Leukocyte Esterase (NEGATIVE) Urine RBC (0-5) Urine WBC (0-5) Ur Epithelial Cells Amorphous Sediment Urine Bacteria Urine Mucus 12/11/17 Range/Units 22:14 WBC (4.5-11.0) K/uL RBC (4.30-5.90) M/uL Hgb (12.0-15.0) g/dL Hct (40.0-54.0) % MCV (80-98) fL MCH (27-31) pg MCHC (32-36) % Plt Count (150-400) K/uL D-Dimer, Quantitative (0.0-400.0) ng/mL Sodium (140-148) mmol/L Potassium (3.6-5.2) mmol/L Chloride (100-108) mmol/L Carbon Dioxide (21-32) mmol/L Anion Gap (5.0-14.0) mmol/L BUN (7-18) mg/dL Creatinine (0.8-1.3) mg/dL Est Cr Clr Drug Dosing mL/min Estimated GFR (MDRD) (>60) Glucose (74-106) mg/dL Calcium (8.5-10.1) mg/dL Total Bilirubin (0.2-1.0) mg/dL AST (15-37) U/L ALT (12-78) U/L Alkaline Phosphatase (46-116) U/L Troponin I (0.000-0.056) ng/mL Total Protein (6.4-8.2) g/dL Albumin (3.4-5.0) g/dL Globulin (2.3-3.5) g/dL Albumin/Globulin Ratio (1.2-2.2) Lipase (73-393) U/L Urine Color Yellow Urine Appearance Clear Urine pH 5.0 (4.5-8.0) Ur Specific [place] 1.010 (1.008-1.030) Urine Protein Negative (NEGATIVE) mg/dL Urine Glucose (UA) Normal (NEGATIVE) mg/dL Urine Ketones Negative (NEGATIVE) mg/dL Urine Occult Blood Negative (NEGATIVE) Urine Nitrite Negative (NEGAITVE) Urine Bilirubin Negative (NEGATIVE) Urine Urobilinogen Normal (NORMAL) mg/dL Ur Leukocyte Esterase Negative (NEGATIVE) Urine RBC 0-5 (0-5) Urine WBC 0-5 (0-5) Ur Epithelial Cells Rare Amorphous Sediment Not seen Urine Bacteria Not seen Urine Mucus Not seen Meds: Medications Discontinued Medications Generic Name Dose Route Start Last Admin Trade Name Rodri PRN Reason Stop Dose Admin Sodium Chloride 10 ml 12/11/17 21:24 Saline Flush FLUSH ASDIRECTED PRN Keep Vein Open - Re-Assessments/Exams Free Text/Narrative Re-Assessment/Exam: 12/11/17 21:25 37-year-old male with fairly sudden onset of bilateral anterior chest pain and bilateral abdominal pain after leaving the lesion tonight. Pain is a dull ache on each side of his chest and more of a sharp pain in the abdomen on each side. Associated with nausea Differential diagnosis includes biliary colic, choledocholithiasis, renal colic , gastroenteritis, colitis, among others. He declines analgesics or antinausea medicine at this time Saline lock investigations 12/11/17 21:32 EKG shows sinus rhythm with some nonspecific ST-T changes, rate 91 12/11/17 22:59 Chest x-ray negative by my interpretation Troponin, d-dimer, CBC, hepatic profile normal Cause of his symptoms which are nonphysiologic in nature, remains elusive Patient does get occasional migraine-like episodes with transient visual clouding on either eye, he did feel unwell yesterday, this may be a viral or neurological problem, no evidence of heart or lung disease at this time Departure - Departure Time of Disposition: 22:59 Disposition: Home, Self-Care 01 Condition: Good Clinical Impression: Generalized abdominal pain Chest pain, unspecified Qualifiers: Chest pain type: unspecified Qualified Code(s): R07.9 - Chest pain, unspecified - Discharge Information Instructions: Nonspecific Chest Pain, Abdominal Pain, Adult, [id number] Referrals: PCP,None [Primary Care Provider] - Forms: ED Department Discharge Additional Instructions: The cause of your chest and abdominal pain tonight is unclear No evidence of heart or lung disease on evaluation Possible stress or pinched nerve Follow-up with primary care provider/your physician or clinic, in the next week if you're continuing symptoms - My Orders Last 24 Hours: My Active Orders 12/11/17 21:23 Saline Lock Insert [OM.PC] Stat 12/11/17 21:24 Chest 1V Frontal [CR] Stat 12/11/17 21:33 EKG Documentation Completion [RC] ASDIRECTED EKG 12 Lead [EK] Routine - Assessment/Plan Last 24 Hours: My Active Orders 12/11/17 21:23 Saline Lock Insert [OM.PC] Stat 12/11/17 21:24 Chest 1V Frontal [CR] Stat 12/11/17 21:33 EKG Documentation Completion [RC] ASDIRECTED EKG 12 Lead [EK] Routine
[2017-12-11 22:36] VITALS: BP 150/94
--- NOTE | 2017-12-12 08:48 | CR ---
CHEST: AP portable CLINICAL HISTORY:Chest pain COMPARISON:2017 FINDINGS: Heart and pulmonary vascularity appear normal. Lung ferrara are clear. There are no effusio ns.. IMPRESSION: No acute cardiopulmonary process or significant change from prior study
== END 2017-12-11 23:24 | disposition home or self-care (01) ==
LOC: JP.ED 20:22
DX: R07.9 Chest pain, unspecified (principal); R10.84 Generalized abdominal pain; I10 Essential (primary) hypertension; J45.909 Unspecified asthma, uncomplicated; Z88.1 Allergy status to other antibiotic agents; Z79.899 Other long term (current) drug therapy
CPT/HCPCS: 36415; 71045; 71045-26; 80053; 81001; 83690; 84484; 85027; 85379; 93005; 99285-25

== ENCOUNTER 2018-02-02 12:33 | Emergency (ER) | payer MEDICAID ==
[2018-02-02 12:50] VITALS: BP 152/105
[2018-02-02] MEDS ORDERED: SUMAtriptan 6 MG/0.5 ML SDV SUBCUT ONE (13:04)
--- NOTE | 2018-02-02 13:07 | EDM.PDOC ---
ED HPI GENERAL MEDICAL PROBLEM - General Chief Complaint: Headache Stated Complaint: MIGRAINE SINCE THIS MORNING Time Seen by Provider: 02/02/18 13:00 Source of Information: Reports: Patient History Limitations: Reports: No Limitations - History of Present Illness INITIAL COMMENTS - FREE TEXT/NARRATIVE: 37-year-old male with a long history of migraine headaches who had a period between age 16 and just recently in the last couple years where he was headache free. Over the past 2 years however he's redeveloped a potential for migraine- type headaches. This one woke him up from sleep at 1 AM last night and has been present for 12 hours, throbbing and across the front and top of his head which is typical. No neurologic deficit, nausea but no vomiting. Onset: Unknown/Unsure (Woke with pain at 1 AM) Quality: Reports: Throbbing, Other (Pounding) Severity: Moderate Headache Pain Score (Numeric/FACES): 9 - Related Data Allergies Allergy/AdvReac Type Severity Reaction Status Date / Time amoxicillin trihydrate Allergy Rash Verified 02/02/18 12:50 [From Augmentin] cefaclor [From Ceclor] Allergy Rash Verified 02/02/18 12:50 erythromycin base Allergy Rash Verified 02/02/18 12:50 [Erythromycin Base] potassium clavulanate Allergy Rash Verified 02/02/18 12:50 [From Augmentin] azithromycin AdvReac Vomiting Verified 02/02/18 12:50 Home Meds: Home Meds Albuterol Sulfate [Proair Hfa] 8.5 gm IH Q4HR PRN 01/10/16 [History] Ibuprofen 800 mg PO Q8H PRN 01/10/16 [History] Acetaminop/Dichlphn/Isomethept [Midrin 325-100-65 MG] 1 cap PO ASDIRECTED #14 cap 09/21/17 [Rx] Cyclobenzaprine [Flexeril] 10 mg PO TID PRN 09/21/17 [History] Escitalopram [Lexapro] 10 mg PO DAILY 09/21/17 [History] Lisinopril [Prinivil] 40 mg PO DAILY 09/21/17 [History] traMADol [Ultram] 50 mg PO Q6H PRN 09/21/17 [History] Past Medical History - Past Health History Medical/Surgical History: Denies Medical/Surgical History HEENT History: Reports: Allergic Rhinitis Cardiovascular History: Reports: Hypertension Respiratory History: Reports: Asthma, Bronchitis, Recurrent Gastrointestinal History: Reports: Chronic Diarrhea, Hemorrhoids Musculoskeletal History: Reports: Fracture, Other (See Below) Other Musculoskeletal History: Nose fracture "89 Neurological History: Reports: Concussion Psychiatric History: Reports: Anxiety, Depression Endocrine/Metabolic History: Reports: Obesity/BMI 30+ - Infectious Disease History Infectious Disease History: Reports: Chicken Pox - Past Surgical History HEENT Surgical History: Reports: None Cardiovascular Surgical History: Reports: None Respiratory Surgical History: Reports: None GI Surgical History: Reports: Cholecystectomy, EGD Endocrine Surgical History: Reports: None Neurological Surgical History: Reports: None Musculoskeletal Surgical History: Reports: None Social & Family History - Tobacco Use Smoking Status *Q: Never Smoker Years of Tobacco use: 8 Packs/Tins Daily: 0.5 Used Tobacco, but Quit: No Second Hand Smoke Exposure: No - Caffeine Use Caffeine Use: Reports: Energy Drinks - Alcohol Use Days Per Week of Alcohol Use: 1 Number of Drinks Per Day: 6 Total Drinks Per Week: 6 - Recreational Drug Use Recreational Drug Use: No ED ROS GENERAL - Review of Systems Review Of Systems: See Below Constitutional: Reports: Malaise. Denies: Fever, Chills HEENT: Denies: Vision Change Respiratory: Denies: Shortness of Breath GI/Abdominal: Reports: Nausea. Denies: Vomiting Skin: Reports: No Symptoms Neurological: Denies: Dizziness - Physical Exam Exam: See Below Exam Limited By: No Limitations General Appearance: Alert, Mild Distress Eye Exam: Bilateral Eye: EOMI, PERRL Head Exam: Atraumatic Respiratory/Chest: No Respiratory Distress Neuro Exam (Abbreviated): Alert, Oriented, No Motor/Sensory Deficits Extremities: Normal Inspection Psychiatric: Normal Affect, Normal Mood Skin Exam: Warm, Dry Course - Vital Signs Last Recorded V/S: Last Vital Signs Temp 97.6 F 02/02/18 12:48 Pulse 78 02/02/18 12:48 Resp 18 02/02/18 12:48 BP 152/105 H 02/02/18 12:48 Pulse Ox 95 02/02/18 12:48 - Orders/Labs/Meds Meds: Medications Discontinued Medications Generic Name Dose Route Start Last Admin Trade Name Freq PRN Reason Stop Dose Admin Sumatriptan Succinate 6 mg 02/02/18 13:04 02/02/18 13:08 Imitrex SUBCUT 02/02/18 13:05 6 mg ONETIME ONE Administration - Re-Assessments/Exams Free Text/Narrative Re-Assessment/Exam: 02/02/18 13:07 Patient was given 6 mg of subcutaneous Imitrex. 02/02/18 13:54 20 minutes after the Imitrex his headache was gone but he was having some significant side effects, however those resolved after another 20 minutes. He is going to discuss with his primary about Imitrex as a treatment source that he can use on his own. Departure - Departure Time of Disposition: 14:05 Disposition: Home, Self-Care 01 Condition: Good Clinical Impression: Migraine - Discharge Information Instructions: Recurrent Migraine Headache, [id number] Referrals: Darshan Deluna MD [Primary Care Provider] - Forms: ED Department Discharge Care Plan Goals: Rest today, continue with Tylenol or ibuprofen if headache starts to recur and return to the emergency room if more treatment is needed. Discuss Imitrex with Dr. Deluna as a source of treatment that you can give yourself when headaches occur.
== END 2018-02-02 14:05 | disposition home or self-care (01) ==
LOC: JP.ED 12:33
DX: G43.909 Migraine, unspecified, not intractable, without status migrainosus (principal); I10 Essential (primary) hypertension; J45.909 Unspecified asthma, uncomplicated; F41.9 Anxiety disorder, unspecified; F32.9 Major depressive disorder, single episode, unspecified; E66.9 Obesity, unspecified; Z88.1 Allergy status to other antibiotic agents; Z79.899 Other long term (current) drug therapy; Z68.41 Body mass index [BMI] 40.0-44.9, adult
CPT/HCPCS: 96372; 99283; J3030

== ENCOUNTER 2018-04-12 15:49 | Emergency (ER) | payer MEDICAID ==
[2018-04-12] MEDS ORDERED: Ketorolac 30 MG/ML SDV IVPUSH ONE (16:11)
[2018-04-12] MEDS ORDERED: Sodium Chloride 0.9% 1,000 ML IV SCH (16:15)
[2018-04-12] MEDS ORDERED: HYDROmorphone 1 MG/ML Syringe IVPUSH ONE (16:27)
--- NOTE | 2018-04-12 16:33 | EDM.PDOC ---
ED HPI GENERAL MEDICAL PROBLEM - General Chief Complaint: Abdominal Pain Stated Complaint: LRQ ABDOMINAL PAIN Time Seen by Provider: 04/12/18 16:05 Source of Information: Reports: Patient History Limitations: Reports: No Limitations - History of Present Illness INITIAL COMMENTS - FREE TEXT/NARRATIVE: started suddenly this am pain to the right flank; nausea and vomiting noted blood in urine no fever RLQ pain as well Hx of kidney stones. Denies burning, frequency or urgency. Onset: Today Duration: Hour(s): Location: Reports: Abdomen Quality: Reports: Stabbing Severity: Moderate Improves with: Reports: None Worsens with: Reports: None Right Lower Abdominal Pain Score (Numeric/FACES): 10 - Related Data Allergies Allergy/AdvReac Type Severity Reaction Status Date / Time amoxicillin trihydrate Allergy Rash Verified 02/02/18 12:50 [From Augmentin] cefaclor [From Ceclor] Allergy Rash Verified 02/02/18 12:50 erythromycin base Allergy Rash Verified 02/02/18 12:50 [Erythromycin Base] potassium clavulanate Allergy Rash Verified 02/02/18 12:50 [From Augmentin] azithromycin AdvReac Vomiting Verified 02/02/18 12:50 Home Meds: Home Meds Albuterol Sulfate [Proair Hfa] 8.5 gm IH Q4HR PRN 01/10/16 [History] Ibuprofen 800 mg PO Q8H PRN 01/10/16 [History] Acetaminop/Dichlphn/Isomethept [Midrin 325-100-65 MG] 1 cap PO ASDIRECTED #14 cap 09/21/17 [Rx] Cyclobenzaprine [Flexeril] 10 mg PO TID PRN 09/21/17 [History] Escitalopram [Lexapro] 10 mg PO DAILY 09/21/17 [History] Lisinopril [Prinivil] 40 mg PO DAILY 09/21/17 [History] traMADol [Ultram] 50 mg PO Q6H PRN 09/21/17 [History] Past Medical History - Past Health History Medical/Surgical History: Denies Medical/Surgical History HEENT History: Reports: Allergic Rhinitis Cardiovascular History: Reports: Hypertension Respiratory History: Reports: Asthma, Bronchitis, Recurrent Gastrointestinal History: Reports: Chronic Diarrhea, Hemorrhoids Musculoskeletal History: Reports: Fracture, Other (See Below) Other Musculoskeletal History: Nose fracture "89 Neurological History: Reports: Concussion Psychiatric History: Reports: Anxiety, Depression Endocrine/Metabolic History: Reports: Obesity/BMI 30+ - Infectious Disease History Infectious Disease History: Reports: Chicken Pox - Past Surgical History HEENT Surgical History: Reports: None Cardiovascular Surgical History: Reports: None Respiratory Surgical History: Reports: None GI Surgical History: Reports: Cholecystectomy, EGD Endocrine Surgical History: Reports: None Neurological Surgical History: Reports: None Musculoskeletal Surgical History: Reports: None Social & Family History - Tobacco Use Smoking Status *Q: Never Smoker - Caffeine Use Caffeine Use: Reports: Energy Drinks, Soda - Recreational Drug Use Recreational Drug Use: No ED ROS GENERAL - Review of Systems Review Of Systems: See Below Constitutional: Reports: Diaphoresis HEENT: Reports: No Symptoms Respiratory: Reports: No Symptoms Cardiovascular: Reports: No Symptoms GI/Abdominal: Reports: Abdominal Pain, Nausea, Vomiting : Reports: Hematuria. Denies: No Symptoms Musculoskeletal: Reports: No Symptoms Skin: Reports: No Symptoms Neurological: Reports: No Symptoms Psychiatric: Reports: No Symptoms ED EXAM, GENERAL - Physical Exam Exam: See Below Exam Limited By: No Limitations General Appearance: Alert, WD/WN, No Apparent Distress Throat/Mouth: Normal Oropharynx Head: Atraumatic, Normocephalic Neck: Normal Inspection, Supple, Non-Tender, Full Range of Motion Respiratory/Chest: Lungs Clear, Normal Breath Sounds, No Accessory Muscle Use, Chest Non-Tender Cardiovascular: Regular Rate, Rhythm GI/Abdominal: Normal Bowel Sounds, Distended, Guarding, Tender. No: Soft, Non- Tender, No Distention Back Exam: Full Range of Motion Extremities: Normal Range of Motion, Non-Tender Neurological: Alert, Oriented, CN II-XII Intact Psychiatric: Normal Affect, Normal Mood Skin Exam: Warm, Dry, Intact Course - Vital Signs Last Recorded V/S: Last Vital Signs Temp 97.2 F 04/12/18 17:02 Pulse 86 04/12/18 17:02 Resp 12 04/12/18 17:02 BP 154/110 H 04/12/18 17:02 Pulse Ox 97 04/12/18 17:02 - Orders/Labs/Meds Orders: Active Orders 24 hr Category Date Time Status Abdomen Pelvis w Cont [CT] Stat Exams 04/12/18 17:04 Taken UA W/MICROSCOPIC [URIN] Stat Lab 07/06/18 17:02 Ordered Labs: Laboratory Tests 04/12/18 04/12/18 04/12/18 Range/Units 16:40 16:40 17:02 WBC 7.8 (4.5-11.0) K/uL RBC 5.22 (4.30-5.90) M/uL Hgb 15.8 H (12.0-15.0) g/dL Hct 48.2 (40.0-54.0) % MCV 92 (80-98) fL MCH 30 (27-31) pg MCHC 33 (32-36) % Plt Count 216 (150-400) K/uL Neut % (Auto) 67 H (36-66) % Lymph % (Auto) 22 L (24-44) % [place] % (Auto) 9 H (2-6) % Eos % (Auto) 2 (2-4) % Baso % (Auto) 1 (0-1) % Sodium 144 (140-148) mmol/L Potassium 4.0 (3.6-5.2) mmol/L Chloride 109 H (100-108) mmol/L Carbon Dioxide 28 (21-32) mmol/L Anion Gap 11.0 (5.0-14.0) mmol/L BUN 16 (7-18) mg/dL Creatinine 1.3 (0.8-1.3) mg/dL Est Cr Clr Drug Dosing 87.07 mL/min Estimated GFR (MDRD) > 60 (>60) Glucose 114 H (74-106) mg/dL Calcium 8.7 (8.5-10.1) mg/dL Total Bilirubin 0.5 D (0.2-1.0) mg/dL AST 27 (15-37) U/L ALT 61 (12-78) U/L Alkaline Phosphatase 53 (46-116) U/L Total Protein 6.8 (6.4-8.2) g/dL Albumin 3.7 (3.4-5.0) g/dL Globulin 3.1 (2.3-3.5) g/dL Albumin/Globulin Ratio 1.2 (1.2-2.2) Urine Color Yellow Urine Appearance Turbid Urine pH 5.0 (4.5-8.0) Ur Specific [place] 1.030 (1.008-1.030) Urine Protein 100 H (NEGATIVE) mg/dL Urine Glucose (UA) Normal (NEGATIVE) mg/dL Urine Ketones Negative (NEGATIVE) mg/dL Urine Occult Blood Large (NEGATIVE) Urine Nitrite Negative (NEGAITVE) Urine Bilirubin Small (NEGATIVE) Urine Urobilinogen 1 (NORMAL) mg/dL Ur Leukocyte Esterase Small (NEGATIVE) Urine RBC Packed H (0-5) Urine WBC 5-10 H (0-5) Ur Epithelial Cells Many Amorphous Sediment Many Urine Bacteria Moderate Urine Mucus Few Meds: Medications Discontinued Medications Generic Name Dose Route Start Last Admin Trade Name Freq PRN Reason Stop Dose Admin Hydromorphone HCl 1 mg 04/12/18 16:27 04/12/18 16:59 Dilaudid IVPUSH 04/12/18 16:28 1 mg ONETIME ONE Administration Hydromorphone HCl 1 mg 04/12/18 17:53 04/12/18 18:00 Dilaudid IVPUSH 1 mg Q1H PRN Administration Pain Sodium Chloride 1,000 mls @ 75 mls/hr 04/12/18 16:15 04/12/18 16:26 Normal Saline IV 75 mls/hr ASDIRECTED VALERIE Administration Sodium Chloride 85 mls @ 3 mls/sec 04/12/18 17:30 04/12/18 17:52 Normal Saline IV 04/12/18 23:00 3 mls/sec ASDIRECTED VALERIE Administration Iopamidol 150 ml 04/12/18 17:30 04/12/18 17:52 Isovue-300 (61%) IV 04/12/18 23:00 150 ml . DIRECTED VALERIE Administration Ketorolac Tromethamine 30 mg 04/12/18 16:11 04/12/18 16:22 Toradol IVPUSH 04/12/18 16:12 30 mg ONETIME ONE Administration Ondansetron HCl 4 mg 04/12/18 16:54 04/12/18 16:58 Zofran IVPUSH 04/12/18 16:55 4 mg ONETIME ONE Administration Sodium Chloride 10 ml 04/12/18 17:18 04/12/18 17:52 Saline Flush FLUSH 04/12/18 17:19 10 ml ONETIME ONE Administration Tamsulosin HCl 0.4 mg 04/12/18 18:48 04/12/18 19:01 Flomax PO 04/12/18 18:49 0.4 mg ONETIME ONE Administration - Re-Assessments/Exams Free Text/Narrative Re-Assessment/Exam: 04/12/18 20:34 CT shows 4 mm obstructed stone, right side with hydronephrosis. No appendicitis Departure - Departure Time of Disposition: 18:45 Disposition: Home, Self-Care 01 Condition: Fair Clinical Impression: Kidney stone, UTI (urinary tract infection) - Discharge Information Instructions: Kidney Stones, [id number], Urinary Tract Infection, Adult Referrals: Darshan Deluna MD [Primary Care Provider] - Forms: ED Department Discharge Additional Instructions: Home Push fluids Flomax as directed Pain medication as directed FU by Sunday am if stone has not passed No driving or operating machinery while taking pain medication - Problem List & Annotations (1) Chest pain, unspecified SNOMED Code(s): 20042371 Code(s): R07.9 - CHEST PAIN, UNSPECIFIED Status: Acute Priority: Low Qualifiers: Chest pain type: other chest pain Qualified Code(s): R07.89 - Other chest pain; R07.8 - Other chest pain (2) Kidney stone SNOMED Code(s): 33853708 Code(s): N20.0 - CALCULUS OF KIDNEY Status: Acute Priority: Medium - Problem List Review Problem List Initiated/Reviewed/Updated: Yes - My Orders Last 24 Hours: My Active Orders 04/12/18 17:02 UA W/MICROSCOPIC [URIN] Stat 04/12/18 17:04 Abdomen Pelvis w Cont [CT] Stat - Assessment/Plan Last 24 Hours: My Active Orders 04/12/18 17:02 UA W/MICROSCOPIC [URIN] Stat 04/12/18 17:04 Abdomen Pelvis w Cont [CT] Stat
[2018-04-12 16:47] VITALS: BP 154/110
[2018-04-12] MEDS ORDERED: Ondansetron 4 MG/2 ML SDV IVPUSH ONE (16:54)
[2018-04-12] MEDS ORDERED: Sodium Chloride 0.9% 10 ML Syringe FLUSH ONE (17:18)
[2018-04-12] MEDS ORDERED: Iopamidol 612 MG/ML 150 ML Bottle IV SCH (17:30)
[2018-04-12] MEDS: HYDROmorphone 1 MG/ML Syringe IVPUSH PRN ×2 (17:59→18:00)
[2018-04-12] MEDS ORDERED: Tamsulosin 0.4 MG Cap.ER PO ONE (18:48)
== END 2018-04-12 19:11 | disposition home or self-care (01) ==
LOC: JP.ED 15:49
DX: N13.2 Hydronephrosis with renal and ureteral calculous obstruction (principal); N39.0 Urinary tract infection, site not specified; I10 Essential (primary) hypertension; F41.9 Anxiety disorder, unspecified; F32.9 Major depressive disorder, single episode, unspecified; Z88.1 Allergy status to other antibiotic agents; Z79.899 Other long term (current) drug therapy
CPT/HCPCS: 36415; 74177; 80053; 81001; 85025; 96361; 96374; 96375; 96376; 99284; A9270; J1170; J1885; J2405; J7030; J7050

== ENCOUNTER 2018-04-18 14:24 | Emergency (ER) | payer MEDICAID ==
[2018-04-18 14:49] VITALS: BP 154/103
--- NOTE | 2018-04-18 15:06 | EDM.PDOC ---
ED HPI GENERAL MEDICAL PROBLEM - General Chief Complaint: Genitourinary Problem Stated Complaint: POSSIBLE KIDNEY STONES Time Seen by Provider: 04/18/18 15:05 Source of Information: Reports: Patient History Limitations: Reports: No Limitations - History of Present Illness INITIAL COMMENTS - FREE TEXT/NARRATIVE: pt arrived with pain in the left abdoman. He has a known 4mm stone that was mid ureter. He has pain at about a 6 but he feels it is getting better. Onset: Today, Other (pt has had no pain since he was in the er. ) Duration: Day(s): Location: Reports: Abdomen Associated Symptoms: Reports: No Other Symptoms - Related Data Allergies Allergy/AdvReac Type Severity Reaction Status Date / Time amoxicillin trihydrate Allergy Rash Verified 04/18/18 14:40 [From Augmentin] cefaclor [From Ceclor] Allergy Rash Verified 04/18/18 14:40 erythromycin base Allergy Rash Verified 04/18/18 14:40 [Erythromycin Base] potassium clavulanate Allergy Rash Verified 04/18/18 14:40 [From Augmentin] azithromycin AdvReac Vomiting Verified 04/18/18 14:40 Home Meds: Home Meds Ibuprofen 800 mg PO Q8H PRN 01/10/16 [History] Acetaminop/Dichlphn/Isomethept [Midrin 325-100-65 MG] 1 cap PO ASDIRECTED #14 cap 09/21/17 [Rx] Cyclobenzaprine [Flexeril] 10 mg PO TID PRN 09/21/17 [History] Escitalopram [Lexapro] 10 mg PO DAILY 09/21/17 [History] Lisinopril [Prinivil] 40 mg PO DAILY 09/21/17 [History] traMADol [Ultram] 50 mg PO Q6H PRN 09/21/17 [History] Hydrocodone/Acetaminophen [Hydrocodon-Acetaminophen 5-325] 1 tab PO Q6H PRN 09/24 [History] Sulfamethoxazole/Trimethoprim [Bactrim 400-80 MG] 1 tab PO BID 04/18/18 [History ] Tamsulosin HCl [Flomax] 0.4 mg PO DAILY 04/18/18 [History] Past Medical History - Past Health History Medical/Surgical History: Denies Medical/Surgical History HEENT History: Reports: Allergic Rhinitis Cardiovascular History: Reports: Hypertension Respiratory History: Reports: Asthma, Bronchitis, Recurrent Gastrointestinal History: Reports: Chronic Diarrhea, Hemorrhoids Musculoskeletal History: Reports: Fracture, Other (See Below) Other Musculoskeletal History: Nose fracture "89 Neurological History: Reports: Concussion Psychiatric History: Reports: Anxiety, Depression Endocrine/Metabolic History: Reports: Obesity/BMI 30+ - Infectious Disease History Infectious Disease History: Reports: Chicken Pox - Past Surgical History HEENT Surgical History: Reports: None Cardiovascular Surgical History: Reports: None Respiratory Surgical History: Reports: None GI Surgical History: Reports: Cholecystectomy, EGD Endocrine Surgical History: Reports: None Neurological Surgical History: Reports: None Musculoskeletal Surgical History: Reports: None Social & Family History - Caffeine Use Caffeine Use: Reports: Soda - Recreational Drug Use Recreational Drug Use: No ED ROS GENERAL - Review of Systems Review Of Systems: See Below Constitutional: Reports: No Symptoms HEENT: Reports: No Symptoms Respiratory: Reports: No Symptoms Cardiovascular: Reports: No Symptoms Endocrine: Reports: No Symptoms GI/Abdominal: Reports: Abdominal Pain : Reports: Other (known stone--4mm in the mid ureter on 04/12) Musculoskeletal: Reports: No Symptoms Skin: Reports: No Symptoms Neurological: Reports: No Symptoms ED EXAM, RENAL/ - Physical Exam Exam: See Below Text/Narrative:: pt arrived with pain in the left abdoman whiich at this point is getting better. Exam Limited By: No Limitations General Appearance: Alert, Mild Distress Ears: Normal External Exam Nose: Normal Inspection Throat/Mouth: Normal Inspection Head: Atraumatic Neck: Normal Inspection Respiratory/Chest: No Respiratory Distress Cardiovascular: Regular Rate, Rhythm GI/Abdominal: Tender, Other (left abdoman. ) (Male) Exam: Deferred Rectal (Males) Exam: Deferred Back Exam: Normal Inspection Extremities: Normal Inspection Neurological: Alert, Oriented, Normal Cognition Course - Vital Signs Last Recorded V/S: Last Vital Signs Temp 36.3 C 04/18/18 15:09 Pulse 98 04/18/18 15:09 Resp 15 04/18/18 15:09 BP 154/103 H 04/18/18 15:09 Pulse Ox 96 04/18/18 15:09 - Orders/Labs/Meds Orders: Active Orders 24 hr Category Date Time Status Abdomen Pelvis wo Cont [CT] Stat Exams 04/18/18 15:03 Ordered UA W/MICROSCOPIC [URIN] Urgent Lab 04/18/18 15:20 Ordered Sodium Chloride 0.9% [Normal Saline] 1,000 ml Med 04/18/18 15:15 Active IV ASDIRECTED Sodium Chloride 0.9% [Normal Saline] 1,000 ml Med 04/18/18 16:15 Active IV ASDIRECTED Medication Orders Sodium Chloride (Normal Saline) 1,000 mls @ 999 mls/hr IV ASDIRECTED VALERIE Last Admin: 04/18/18 15:37 Dose: 999 mls/hr Sodium Chloride (Normal Saline) 1,000 mls @ 999 mls/hr IV ASDIRECTED [facility] Labs: Laboratory Tests 04/18/18 Range/Units 15:20 Urine Color [place] Urine Appearance Clear Urine pH 5.0 (4.5-8.0) Ur Specific [place] 1.030 (1.008-1.030) Urine Protein Negative (NEGATIVE) mg/dL Urine Glucose (UA) Normal (NEGATIVE) mg/dL Urine Ketones Negative (NEGATIVE) mg/dL Urine Occult Blood Negative (NEGATIVE) Urine Nitrite Negative (NEGAITVE) Urine Bilirubin Small (NEGATIVE) Urine Urobilinogen Normal (NORMAL) mg/dL Ur Leukocyte Esterase Moderate (NEGATIVE) Urine RBC 0-5 (0-5) Urine WBC 5-10 H (0-5) Ur Epithelial Cells Not seen Amorphous Sediment Few Urine Bacteria Not seen Urine Mucus Not seen Meds: Medications Generic Name Dose Route Start Last Admin Trade Name Freq PRN Reason Stop Dose Admin Sodium Chloride 1,000 mls @ 999 mls/hr 04/18/18 15:15 04/18/18 15:37 Normal Saline IV 999 mls/hr ASDIRECTED VALERIE Administration Sodium Chloride 1,000 mls @ 999 mls/hr 04/18/18 16:15 Normal Saline IV ASDIRECTED VALERIE - Re-Assessments/Exams Free Text/Narrative Re-Assessment/Exam: 04/18/18 16:16 pt had a cat scan of the abdoman without contrast that showed that the stone has passed. Departure - Departure Time of Disposition: 16:16 Disposition: Home, Self-Care 01 Condition: Fair Clinical Impression: Ureteral calculus, left - Discharge Information Referrals: PCP,None [Primary Care Provider] - Forms: ED Department Discharge Care Plan Goals: push fluids, stop flomax. - My Orders Last 24 Hours: My Active Orders 04/18/18 15:03 Abdomen Pelvis wo Cont [CT] Stat 04/18/18 15:15 Sodium Chloride 0.9% [Normal Saline] 1,000 ml IV ASDIRECTED 04/18/18 15:20 UA W/MICROSCOPIC [URIN] Urgent 04/18/18 16:15 Sodium Chloride 0.9% [Normal Saline] 1,000 ml IV ASDIRECTED - Assessment/Plan Last 24 Hours: My Active Orders 04/18/18 15:03 Abdomen Pelvis wo Cont [CT] Stat 04/18/18 15:15 Sodium Chloride 0.9% [Normal Saline] 1,000 ml IV ASDIRECTED 04/18/18 15:20 UA W/MICROSCOPIC [URIN] Urgent 04/18/18 16:15 Sodium Chloride 0.9% [Normal Saline] 1,000 ml IV ASDIRECTED
[2018-04-18] MEDS ORDERED: Sodium Chloride 0.9% 1,000 ML IV SCH ×2 (15:15→16:15)
== END 2018-04-18 17:16 | disposition home or self-care (01) ==
LOC: JP.ED 14:24
DX: N20.1 Calculus of ureter (principal); I10 Essential (primary) hypertension; J45.909 Unspecified asthma, uncomplicated; F41.9 Anxiety disorder, unspecified; F32.9 Major depressive disorder, single episode, unspecified; Z79.899 Other long term (current) drug therapy; Z88.1 Allergy status to other antibiotic agents; Z88.8 Allergy status to other drugs, medicaments and biological substances
CPT/HCPCS: 74176; 81001; 96360; 99284; J7030

== ENCOUNTER 2019-01-04 11:52 | Emergency (ER) | payer MEDICAID ==
[2019-01-04 12:19] VITALS: BP 130/81
[2019-01-04] MEDS ORDERED: Atropine/Hyoscyamine/PHENobarbital/Scopolamine Elixir 10 ML UD PO ONE (12:31)
[2019-01-04] MEDS ORDERED: Acetaminophen 500 MG Tab PO ONE (12:32)
--- NOTE | 2019-01-04 12:39 | EDM.PDOC ---
ED HPI GENERAL MEDICAL PROBLEM - General Chief Complaint: Abdominal Pain Stated Complaint: ABD PAIN, BURNING/LEFT ARM PAIN Time Seen by Provider: 01/04/19 12:25 Source of Information: Reports: Patient, Old Records, RN History Limitations: Reports: No Limitations - History of Present Illness INITIAL COMMENTS - FREE TEXT/NARRATIVE: 38 yo male here with abdominal pain that radiates toward his scapulae. Mild nausea, no fever. No change in bowel or bladder fxn. PHx of cholecystectomy. No similar pain in the past. Onset last night about 0200. Pain does move around somewhat, nothing makes the pain worse or better. No relief with simethicone. Ate a little at the onset without any change. Has anorexia. Did not drive himself here today. Onset: Today Onset Date: 01/04/19 Onset Time: 02:00 Duration: Hour(s):, Constant Location: Reports: Abdomen Quality: Reports: Dull Severity: Moderate Improves with: Reports: None Worsens with: Reports: None Context: Reports: Other (see HPI) Associated Symptoms: Reports: Loss of Appetite, Nausea/Vomiting (very mild nausea intermittently.). Denies: Chest Pain, Fever/Chills, Rash, Shortness of Breath Treatments [employer]: Reports: Other (see below) (simethicone) Lower Abdomen Pain Score (Numeric/FACES): 5 - Related Data Allergies Allergy/AdvReac Type Severity Reaction Status Date / Time amoxicillin trihydrate Allergy Rash Verified 01/04/19 12:08 [From Augmentin] cefaclor [From Ceclor] Allergy Rash Verified 01/04/19 12:08 erythromycin base Allergy Rash Verified 01/04/19 12:08 [Erythromycin Base] potassium clavulanate Allergy Rash Verified 01/04/19 12:08 [From Augmentin] azithromycin AdvReac Vomiting Verified 01/04/19 12:08 Home Meds: Home Meds Ibuprofen 800 mg PO Q8H PRN 01/10/16 [History] Escitalopram [Lexapro] 20 mg PO DAILY 09/21/17 [History] Lisinopril [Prinivil] 20 mg PO DAILY 09/21/17 [History] Past Medical History - Past Health History Medical/Surgical History: Denies Medical/Surgical History HEENT History: Reports: Allergic Rhinitis Cardiovascular History: Reports: Hypertension Respiratory History: Reports: Asthma, Bronchitis, Recurrent Gastrointestinal History: Reports: Chronic Diarrhea, Hemorrhoids Genitourinary History: Reports: Renal Calculus Musculoskeletal History: Reports: Fracture, Other (See Below) Other Musculoskeletal History: Nose fracture "89 Neurological History: Reports: Concussion Psychiatric History: Reports: Anxiety, Depression Endocrine/Metabolic History: Reports: Obesity/BMI 30+ - Infectious Disease History Infectious Disease History: Reports: Chicken Pox - Past Surgical History GI Surgical History: Reports: Cholecystectomy, EGD Social & Family History - Tobacco Use Smoking Status *Q: Never Smoker Second Hand Smoke Exposure: No - Caffeine Use Caffeine Use: Reports: Soda, Tea - Alcohol Use Days Per Week of Alcohol Use: 2 Number of Drinks Per Day: 3 Total Drinks Per Week: 6 - Recreational Drug Use Recreational Drug Use: No ED ROS GENERAL - Review of Systems Review Of Systems: See Below Constitutional: Reports: No Symptoms HEENT: Reports: No Symptoms Respiratory: Reports: No Symptoms Cardiovascular: Reports: No Symptoms Endocrine: Reports: No Symptoms GI/Abdominal: Reports: Abdominal Pain, Diarrhea (chronic, not worse), Decreased Appetite, Nausea (mild). Denies: Black Stool, Bloody Stool, Constipation, Distension, Flatus, Hematemesis, Hematochezia, Melena, Vomiting : Reports: No Symptoms Musculoskeletal: Reports: No Symptoms Skin: Reports: No Symptoms Neurological: Reports: No Symptoms ED EXAM, GI/ABD - Physical Exam Exam: See Below Exam Limited By: No Limitations General Appearance: Alert EKG INTERPRETATION EKG Date: 01/04/19 Time: 13:20 Rhythm: NSR Rate (Beats/Min): 72 [place]: Normal P-Wave: Present QRS: Normal ST-T: Normal QT: Normal Comparison: No Change Course - Vital Signs Last Recorded V/S: Last Vital Signs Temp 36.3 C 01/04/19 12:18 Pulse 91 01/04/19 12:18 Resp 16 01/04/19 12:18 BP 130/81 01/04/19 12:18 Pulse Ox 96 01/04/19 12:18 - Orders/Labs/Meds Orders: Active Orders 24 hr Category Date Time Status EKG Documentation Completion [RC] ASDIRECTED Care 01/04/19 12:35 Active EKG 12 Lead [EK] Routine Ther 01/04/19 12:34 Ordered Labs: Laboratory Tests 03/30/19 03/30/19 Range/Units 12:46 12:46 WBC 7.0 (4.5-11.0) K/uL RBC 5.53 (4.30-5.90) M/uL Hgb 16.8 H (12.0-15.0) g/dL Hct 52.0 (40.0-54.0) % MCV 94 (80-98) fL MCH 30 (27-31) pg MCHC 32 (32-36) % Plt Count 196 (150-400) K/uL Troponin I < 0.017 (0.000-0.056) ng/mL Meds: Medications Discontinued Medications Generic Name Dose Route Start Last Admin Trade Name Rodri PRN Reason Stop Dose Admin Acetaminophen 1,000 mg 01/04/19 12:32 01/04/19 13:03 Tylenol Extra Strength PO 01/04/19 12:33 1,000 mg ONETIME ONE Administration Belladonna/Phenobarbital 10 ml 01/04/19 12:31 01/04/19 13:04 Elixir PO 01/04/19 12:32 10 ml ONETIME ONE Administration Departure - Departure Time of Disposition: 13:35 Disposition: Home, Self-Care 01 Condition: Fair Clinical Impression: Abdominal pain Qualifiers: Abdominal location: generalized Qualified Code(s): R10.84 - Generalized abdominal pain - Discharge Information *PRESCRIPTION DRUG MONITORING PROGRAM REVIEWED*: No *COPY OF PRESCRIPTION DRUG MONITORING REPORT IN PATIENT LUCIO: No Instructions: Abdominal Pain, Adult, [id number] Referrals: Darshan Deluna MD [Primary Care Provider] - Forms: ED Department Discharge Additional Instructions: Use acetaminophen as needed for pain relief. Light diet and rest today. F/U with your provider on Sunday if not improving. Return here if a lot worse. Use dicyclomine as directed for abdominal symptoms. - My Orders Last 24 Hours: My Active Orders 01/04/19 12:34 EKG 12 Lead [EK] Routine 01/04/19 12:35 EKG Documentation Completion [RC] ASDIRECTED - Assessment/Plan Last 24 Hours: My Active Orders 01/04/19 12:34 EKG 12 Lead [EK] Routine 01/04/19 12:35 EKG Documentation Completion [RC] ASDIRECTED
== END 2019-01-04 13:50 | disposition home or self-care (01) ==
LOC: JP.ED 11:52
DX: R10.84 Generalized abdominal pain (principal); I10 Essential (primary) hypertension; F41.9 Anxiety disorder, unspecified; F32.9 Major depressive disorder, single episode, unspecified; Z79.899 Other long term (current) drug therapy; Z88.1 Allergy status to other antibiotic agents
CPT/HCPCS: 36415; 84484; 85027; 93005; 99284; A9270; 93010

== ENCOUNTER 2019-04-08 18:29 | Emergency (ER) | payer MEDICAID ==
[2019-04-08 18:53] VITALS: BP 181/108
[2019-04-08] MEDS ORDERED: methylPREDNISolone Sodium Succinate 125 MG/2 ML SDV IM ONE (19:39)
--- NOTE | 2019-04-08 19:41 | EDM.PDOC ---
ED HPI GENERAL MEDICAL PROBLEM - General Chief Complaint: Back Pain or Injury Stated Complaint: SEVERE LEFT BACK PAIN Time Seen by Provider: 04/08/19 19:20 Source of Information: Reports: Patient History Limitations: Reports: No Limitations - History of Present Illness INITIAL COMMENTS - FREE TEXT/NARRATIVE: 38-year-old male with left lower back pain for the past 5 days. It started when he was climbing in and out of his truck, he's also been throwing a lot of horseshoes and is concerned he may have pulled his back. It started last , got a little better on Sunday but Sunday and Sunday were very painful. Yesterday he went to the chiropractor, that helped for 15 minutes. He' s been taken a regular dose of naproxen and took some Flexeril and it's not helping. No urinary symptoms, no radiculopathy. It's most painful when he is moving. Onset: Gradual Duration: Day(s): (5 days) Location: Reports: Back Associated Symptoms: Reports: No Other Symptoms, Other (Has some ongoing right shoulder pain as well) - Related Data Allergies Allergy/AdvReac Type Severity Reaction Status Date / Time amoxicillin trihydrate Allergy Rash Verified 04/08/19 19:19 [From Augmentin] cefaclor [From Ceclor] Allergy Rash Verified 04/08/19 19:19 erythromycin base Allergy Rash Verified 04/08/19 19:19 [Erythromycin Base] potassium clavulanate Allergy Rash Verified 04/08/19 19:19 [From Augmentin] azithromycin AdvReac Vomiting Verified 04/08/19 19:19 Home Meds: Home Meds Ibuprofen 800 mg PO Q8H PRN 01/10/16 [History] Escitalopram [Lexapro] 20 mg PO DAILY 09/21/17 [History] Lisinopril [Prinivil] 20 mg PO DAILY 09/21/17 [History] Past Medical History - Past Health History Medical/Surgical History: Denies Medical/Surgical History HEENT History: Reports: Allergic Rhinitis Cardiovascular History: Reports: Hypertension Respiratory History: Reports: Asthma, Bronchitis, Recurrent Gastrointestinal History: Reports: Chronic Diarrhea, Hemorrhoids Genitourinary History: Reports: Renal Calculus Musculoskeletal History: Reports: Fracture, Other (See Below) Other Musculoskeletal History: Nose fracture "89 Neurological History: Reports: Concussion Psychiatric History: Reports: Anxiety, Depression Endocrine/Metabolic History: Reports: Obesity/BMI 30+ - Infectious Disease History Infectious Disease History: Reports: Chicken Pox - Past Surgical History GI Surgical History: Reports: Cholecystectomy, EGD Social & Family History - Caffeine Use Caffeine Use: Reports: Soda - Recreational Drug Use Recreational Drug Use: No ED ROS GENERAL - Review of Systems Review Of Systems: See Below Constitutional: Denies: Fever, Chills HEENT: Reports: No Symptoms Respiratory: Reports: Cough (Mild persistent cough, no shortness of breath) Cardiovascular: Denies: Chest Pain GI/Abdominal: Denies: Abdominal Pain : Reports: No Symptoms Skin: Reports: No Symptoms Neurological: Denies: Headache ED EXAM,LOWER BACK PAIN/INJURY - Physical Exam Exam: See Below Exam Limited By: No Limitations General Appearance: Alert, No Apparent Distress Head: Atraumatic Neck: Supple Respiratory/Chest: No Respiratory Distress, Lungs Clear Back Exam: Other (Paravertebral tenderness is palpable along the lower thoracic and upper lumbar spine on the left side. Some tenderness to percussion. No increased pain with rotation against resistance or extension of the back, however forward bending or lifting the left leg causes pain in his back.) Neurological: Alert, No Motor/Sensory Deficits, Oriented x 3 Course - Vital Signs Last Recorded V/S: Last Vital Signs Temp 97.7 F 04/08/19 19:30 Pulse 104 H 04/08/19 19:30 Resp 16 04/08/19 19:30 BP 181/108 H 04/08/19 19:30 Pulse Ox 94 L 04/08/19 19:30 - Orders/Labs/Meds Meds: Medications Discontinued Medications Generic Name Dose Route Start Last Admin Trade Name Rodri PRN Reason Stop Dose Admin Methylprednisolone Sodium Succinate 125 mg 04/08/19 19:39 04/08/19 19:53 Solu-Medrol IM 04/08/19 19:40 125 mg ONETIME ONE Administration - Re-Assessments/Exams Free Text/Narrative Re-Assessment/Exam: 04/08/19 19:38 Patient will be given one injection of Solu-Medrol 125 mg IM, and given 12 hydrocodone for extra pain control. He is a large man, can take 3 Aleve twice a day and use the hydrocodone for breakthrough pain when resting. Recheck on or Sunday if not improving satisfactorily. I did encourage him to try to stay active. Departure - Departure Time of Disposition: 19:56 Disposition: Home, Self-Care 01 Clinical Impression: Low back strain - Discharge Information Instructions: Low Back Sprain Referrals: Darshan Deluna MD [Primary Care Provider] - Forms: ED Department Discharge Care Plan Goals: Continue with a regular dose of naproxen, increase activity as tolerated and use stronger pain medications as directed if needed. Consider rechecking in 3-4 days if not improving satisfactorily.
== END 2019-04-08 19:56 | disposition home or self-care (01) ==
LOC: JP.ED 18:29
DX: S39.012A Strain of muscle, fascia and tendon of lower back, initial encounter (principal); I10 Essential (primary) hypertension; F41.9 Anxiety disorder, unspecified; F32.9 Major depressive disorder, single episode, unspecified; Z79.899 Other long term (current) drug therapy; Z88.1 Allergy status to other antibiotic agents; X50.9XXA Other and unspecified overexertion or strenuous movements or postures, initial encounter
CPT/HCPCS: 96372; 99282; J2930

== ENCOUNTER 2019-08-17 10:27 | Emergency (ER) | payer MEDICAID ==
--- NOTE | 2019-08-17 11:35 | EDM.PDOC ---
ED HPI GENERAL MEDICAL PROBLEM - General Chief Complaint: Upper Extremity Injury/Pain Stated Complaint: RT SHOULDER PAIN, BACK PAIN Time Seen by Provider: 08/17/19 11:35 Source of Information: Reports: Patient History Limitations: Reports: No Limitations - History of Present Illness INITIAL COMMENTS - FREE TEXT/NARRATIVE: pt arrived with pain in the rt post cervical area. He had recent scope on his shoulder and had some bone spurs removed. He is having pain mainly in the rt post cervical area. Onset: Other (pt got up with all of the tightness in the post cervical area. ) Duration: Hour(s): Location: Reports: Head, Neck, Upper Extremity, Right Associated Symptoms: Reports: No Other Symptoms Right Shoulder Pain Score (Numeric/FACES): 10 - Related Data Allergies Allergy/AdvReac Type Severity Reaction Status Date / Time amoxicillin trihydrate Allergy Rash Verified 08/17/19 11:25 [From Augmentin] cefaclor [From Ceclor] Allergy Rash Verified 08/17/19 11:25 erythromycin base Allergy Rash Verified 08/17/19 11:25 [Erythromycin Base] potassium clavulanate Allergy Rash Verified 08/17/19 11:25 [From Augmentin] azithromycin AdvReac Vomiting Verified 08/17/19 11:25 Home Meds: Home Meds Escitalopram [Lexapro] 20 mg PO DAILY 09/21/17 [History] Lisinopril [Prinivil] 20 mg PO DAILY 09/21/17 [History] Omeprazole 1 tab PO DAILY 08/17/19 [History] Past Medical History - Past Health History Medical/Surgical History: Denies Medical/Surgical History HEENT History: Reports: Allergic Rhinitis Cardiovascular History: Reports: Hypertension Respiratory History: Reports: Asthma, Bronchitis, Recurrent Gastrointestinal History: Reports: Chronic Diarrhea, Hemorrhoids Genitourinary History: Reports: Renal Calculus Musculoskeletal History: Reports: Fracture, Other (See Below) Other Musculoskeletal History: Nose fracture "89 Neurological History: Reports: Concussion Psychiatric History: Reports: Anxiety, Depression Endocrine/Metabolic History: Reports: Obesity/BMI 30+ - Infectious Disease History Infectious Disease History: Reports: Chicken Pox - Past Surgical History GI Surgical History: Reports: Cholecystectomy, EGD Social & Family History - Tobacco Use Smoking Status *Q: Never Smoker - Caffeine Use Caffeine Use: Reports: Soda Review of Systems - Review of Systems Review Of Systems: See Below Constitutional: Reports: No Symptoms Eyes: Reports: No Symptoms Ears: Reports: No Symptoms Nose: Reports: No Symptoms Mouth/Throat: Reports: No Symptoms Respiratory: Reports: No Symptoms Cardiovascular: Reports: No Symptoms GI/Abdominal: Reports: No Symptoms Musculoskeletal: Reports: Other (painin the rt post cervical area. He has some pain going down the rt am. ) ED EXAM, GENERAL - Physical Exam Exam: See Below Free Text/Narrative:: pt arrived with pain in the rt post cervical area. he is feeling very tight in the area. Exam Limited By: No Limitations General Appearance: Alert, Anxious, Moderate Distress Ears: Normal TMs Nose: Normal Inspection Throat/Mouth: Normal Inspection Head: Atraumatic Neck: Tender Lateral Respiratory/Chest: No Respiratory Distress Cardiovascular: Regular Rate, Rhythm GI/Abdominal: Soft, Non-Tender (Male) Exam: Deferred Rectal (Males) Exam: Deferred Back Exam: Normal Inspection Extremities: Other (pain in the rt post cervical are. Muscle is very tight. ) Neurological: Alert, Oriented, Normal Cognition Course - Orders/Labs/Meds Orders: Active Orders 24 hr Category Date Time Status Cervical Spine Min 4V [CR] Stat Exams 08/17/19 11:32 Taken Shoulder Comp Rt [CR] Stat Exams 08/17/19 11:32 Taken Ice Bag [Ice Therapy] [OM.PC] Routine Oth 08/17/19 11:34 Ordered Meds: Medications Discontinued Medications Generic Name Dose Route Start Last Admin Trade Name Freq PRN Reason Stop Dose Admin Baclofen 10 mg 08/17/19 11:34 08/17/19 11:38 Lioresal PO 08/17/19 11:35 10 mg ONETIME ONE Administration Ketorolac Tromethamine 60 mg 08/17/19 11:34 08/17/19 11:38 Toradol IM 08/17/19 11:35 60 mg ONETIME ONE Administration - Re-Assessments/Exams Free Text/Narrative Re-Assessment/Exam: 08/17/19 13:00 pt was given torodol 60 mg im and baclofen 10 mg bid to relax muscles. He is more comfortable, 08/17/19 13:01 Departure - Departure Time of Disposition: 12:45 Disposition: Home, Self-Care 01 Condition: Fair Clinical Impression: Cervical paraspinal muscle spasm - Discharge Information Referrals: Darshan Deluna MD [Primary Care Provider] - Forms: ED Department Discharge Care Plan Goals: moist warm heat to the shoulder and post cervical area, stretching exercises for the rt side of the neck. baclofen 10 mg bid for muscle spasm, tramodol 50mg tid, keep follow up ortho appt. - My Orders Last 24 Hours: My Active Orders 08/17/19 11:32 Cervical Spine Min 4V [CR] Stat Shoulder Comp Rt [CR] Stat 08/17/19 11:34 Ice Bag [Ice Therapy] [OM.PC] Routine - Assessment/Plan Last 24 Hours: My Active Orders 08/17/19 11:32 Cervical Spine Min 4V [CR] Stat Shoulder Comp Rt [CR] Stat 08/17/19 11:34 Ice Bag [Ice Therapy] [OM.PC] Routine
[2019-08-17] MEDS: Baclofen 10 MG Tab PO ONE (11:38)
[2019-08-17] MEDS: Ketorolac 60 MG/2 ML SDV IM ONE (11:38)
--- NOTE | 2019-08-17 13:01 | CRLCR ---
INDICATION: PAIN IN SHOULDER TECHNIQUE: Right shoulder 3 views COMPARISON: None. FINDINGS: Bones: Alignment is normal. No fractures or bone lesions. Joint spaces: Unremarkable. Soft tissues: Unremarkable. IMPRESSION: Unremarkable right shoulder. Dictated by: Chriss Rizvi MD @ 08/17/2019 12:59:50 (Electronically Signed)
--- NOTE | 2019-08-17 13:18 | CRLCR ---
INDICATION: Pain in right posterior cervical area TECHNIQUE: Frontal, lateral, oblique views of the cervical spine COMPARISON: None FINDINGS AND IMPRESSION: On the lateral view, the cervical spine is visualized to the level of the mid C6 vertebral body. Normal cervical spine alignment. No prevertebral soft tissue swelling. Visualized vertebral body heights are maintained. Intervertebral disc spaces are maintained. No significant neural foraminal narrowing. Dictated by Thelma Burgess MD @ 08/17/2019 1:16:13 PM Dictated by: Thelma Burgess MD @ 08/17/2019 13:16:18 (Electronically Signed)
== END 2019-08-17 13:09 | disposition home or self-care (01) ==
LOC: JP.ED 10:27
DX: M62.838 Other muscle spasm (principal); I10 Essential (primary) hypertension; J45.909 Unspecified asthma, uncomplicated; F41.9 Anxiety disorder, unspecified; F32.9 Major depressive disorder, single episode, unspecified; E66.9 Obesity, unspecified; Z68.41 Body mass index [BMI] 40.0-44.9, adult; Z79.899 Other long term (current) drug therapy; Z88.1 Allergy status to other antibiotic agents
CPT/HCPCS: 72050; 73030; 96372; 99283; A9270; J1885

== ENCOUNTER 2020-01-31 15:39 | Emergency (ER) | payer MEDICAID ==
[2020-01-31 16:13] VITALS: BP 156/95; PULSE 91
--- NOTE | 2020-01-31 16:16 | EDM.PDOC ---
ED HPI GENERAL MEDICAL PROBLEM - General Chief Complaint: Lower Extremity Injury/Pain Stated Complaint: R FOOT INJURY Time Seen by Provider: 01/31/20 16:05 Source of Information: Reports: Patient, Old Records, RN History Limitations: Reports: No Limitations - History of Present Illness INITIAL COMMENTS - FREE TEXT/NARRATIVE: 39 yo male stubbed his R great toe this morning about 11 am. Has a little bleeding around the nail. The great toe and distal/dorsal foot is painful. Onset: Today Onset Date: 01/31/20 Onset Time: 11:00 Duration: Constant Location: Reports: Lower Extremity, Right Quality: Reports: Ache Severity: Moderate Improves with: Reports: Rest Worsens with: Reports: Movement Context: Reports: Trauma Associated Symptoms: Reports: No Other Symptoms Treatments [employer]: Reports: Other (see below) (none) - Related Data Allergies Allergy/AdvReac Type Severity Reaction Status Date / Time amoxicillin trihydrate Allergy Rash Verified 01/31/20 15:58 [From Augmentin] cefaclor [From Ceclor] Allergy Rash Verified 01/31/20 15:58 erythromycin base Allergy Rash Verified 01/31/20 15:58 [Erythromycin Base] potassium clavulanate Allergy Rash Verified 01/31/20 15:58 [From Augmentin] azithromycin AdvReac Vomiting Verified 01/31/20 15:58 Home Meds: Home Meds Lisinopril [Prinivil] 20 mg PO DAILY 09/21/17 [History] Omeprazole 1 tab PO DAILY 08/17/19 [History] Past Medical History - Past Health History Medical/Surgical History: Denies Medical/Surgical History HEENT History: Reports: Allergic Rhinitis Cardiovascular History: Reports: Hypertension Respiratory History: Reports: Asthma, Bronchitis, Recurrent Gastrointestinal History: Reports: Chronic Diarrhea, Hemorrhoids Genitourinary History: Reports: Renal Calculus Musculoskeletal History: Reports: Fracture, Other (See Below) Other Musculoskeletal History: Nose fracture "89 Neurological History: Reports: Concussion Psychiatric History: Reports: Anxiety, Depression Endocrine/Metabolic History: Reports: Obesity/BMI 30+ - Infectious Disease History Infectious Disease History: Reports: Chicken Pox - Past Surgical History GI Surgical History: Reports: Cholecystectomy, EGD Social & Family History - Tobacco Use Smoking Status *Q: Never Smoker - Caffeine Use Caffeine Use: Reports: Soda Review of Systems - Review of Systems Review Of Systems: See Below Constitutional: Reports: No Symptoms Musculoskeletal: Reports: Foot Pain (right) Skin: Reports: Wound (small amt of bleeding around the great toe nail. ) Neurological: Reports: No Symptoms ED EXAM, GENERAL - Physical Exam Exam: See Below Exam Limited By: No Limitations General Appearance: Alert, WD/WN, No Apparent Distress, Obese Extremities: Normal Inspection, No Pedal Edema, Limited Range of Motion (great toe R due to pain. ). No: Normal Range of Motion, Non-Tender, Pedal Edema, Increased Warmth, Redness Neurological: Alert, Oriented, CN II-XII Intact, Normal Cognition, No Motor/ Sensory Deficits Psychiatric: Normal Affect, Normal Mood Skin Exam: Warm, Dry, Normal Color, No Rash, Wound/Incision (don't see a wound, but there is some blood around the perimeter of his R great toe nail. ) Course - Vital Signs Last Recorded V/S: Last Vital Signs Temp 36.0 C L 01/31/20 16:05 Pulse 91 01/31/20 16:05 Resp 14 01/31/20 16:05 BP 156/95 H 01/31/20 16:05 Pulse Ox 94 L 01/31/20 16:05 - Orders/Labs/Meds Orders: Active Orders 24 hr Category Date Time Status Foot Comp Min 3V Rt [CR] Stat Exams 01/31/20 16:12 Taken - Radiology Interpretation Free Text/Narrative:: R foot X-ray-neg Departure - Departure Time of Disposition: 16:40 Disposition: Home, Self-Care 01 Condition: Good Clinical Impression: Toe pain, right - Discharge Information *PRESCRIPTION DRUG MONITORING PROGRAM REVIEWED*: No *COPY OF PRESCRIPTION DRUG MONITORING REPORT IN PATIENT LUCIO: No Referrals: PCP,None [Primary Care Provider] - Forms: ED Department Discharge Additional Instructions: Take ibuprofen and/or acetaminophen as needed for pain relief. Elevate. Recheck as needed. Sepsis Event Note - Evaluation Sepsis Screening Result: No Definite Risk - Focused Exam Vital Signs: Vital Signs Temp Pulse Resp BP Pulse Ox 01/31/20 16:05 36.0 C L 91 14 156/95 H 94 L Date Exam was Performed: 01/31/20 Time Exam was Performed: 16:39 - My Orders Last 24 Hours: My Active Orders 01/31/20 16:12 Foot Comp Min 3V Rt [CR] Stat - Assessment/Plan Last 24 Hours: My Active Orders 01/31/20 16:12 Foot Comp Min 3V Rt [CR] Stat
--- NOTE | 2020-02-02 11:45 | CR ---
FOOT RIGHT 3 views CLINICAL HISTORY:First toe and dorsal foot injury FINDINGS:No fracture or dislocation is identified. There is no radiopaque foreign body. There is a small bone island in the distal aspect of the fifth metatarsal. Impression: No fracture or dislocation
== END 2020-01-31 16:48 | disposition home or self-care (01) ==
LOC: JP.ED 15:39
DX: M79.674 Pain in right toe(s) (principal); Z88.0 Allergy status to penicillin; Z88.1 Allergy status to other antibiotic agents; Z79.899 Other long term (current) drug therapy; I10 Essential (primary) hypertension; E66.9 Obesity, unspecified; Z68.39 Body mass index [BMI] 39.0-39.9, adult
CPT/HCPCS: 73630-26-RT; 73630-RT; 99283-25

== ENCOUNTER 2020-12-27 08:35 | Emergency (ER) | payer MEDICAID ==
[2020-12-27 08:48] VITALS: BP 166/108; PULSE 90
--- NOTE | 2020-12-27 09:06 | EDM.PDOC ---
ED HPI GENERAL MEDICAL PROBLEM - General Chief Complaint: General Stated Complaint: POSSIBLE HERNIA Time Seen by Provider: 12/27/20 08:50 Source of Information: Reports: Patient History Limitations: Reports: No Limitations - History of Present Illness INITIAL COMMENTS - FREE TEXT/NARRATIVE: 40-year-old male that was pushing on a large tire 3 days ago and felt a pull in his right groin. Later it started hurting, now it is painful to stand or walk and he has some mild urinary urgency. No fevers or chills. He has been told in the past that he has a "hernia" but no treatment was offered. He is worried that his hernia is back. Onset: Sudden (Fairly suddenly 3 days ago) Duration: Day(s): (3 days) Location: Reports: Other (Right groin) Quality: Reports: Ache, Stabbing Associated Symptoms: Reports: Other (Mild urinary urgency, no dysuria) - Related Data Allergies Allergy/AdvReac Type Severity Reaction Status Date / Time amoxicillin trihydrate Allergy Rash Verified 12/27/20 08:49 [From Augmentin] cefaclor [From Ceclor] Allergy Rash Verified 12/27/20 08:49 erythromycin base Allergy Rash Verified 12/27/20 08:49 [Erythromycin Base] potassium clavulanate Allergy Rash Verified 12/27/20 08:49 [From Augmentin] azithromycin AdvReac Vomiting Verified 12/27/20 08:49 Home Meds: Home Meds Lisinopril [Prinivil] 20 mg PO DAILY 09/21/17 [History] Omeprazole 20 mg PO DAILY PRN 08/17/19 [History] Past Medical History - Past Health History Medical/Surgical History: Denies Medical/Surgical History HEENT History: Reports: Allergic Rhinitis, Impaired Vision Cardiovascular History: Reports: Hypertension Respiratory History: Reports: Asthma, Bronchitis, Recurrent Gastrointestinal History: Reports: Chronic Diarrhea, Hemorrhoids Genitourinary History: Reports: Renal Calculus Musculoskeletal History: Reports: Fracture, Other (See Below) Other Musculoskeletal History: Nose fracture "89 Neurological History: Reports: Concussion, Migraines Psychiatric History: Reports: Anxiety, Depression Endocrine/Metabolic History: Reports: Obesity/BMI 30+ - Infectious Disease History Infectious Disease History: Reports: Chicken Pox, Shingles - Past Surgical History Head Surgeries/Procedures: Reports: None HEENT Surgical History: Reports: None Cardiovascular Surgical History: Reports: None Respiratory Surgical History: Reports: None GI Surgical History: Reports: Cholecystectomy, EGD, Hernia, Inguinal Endocrine Surgical History: Reports: None Neurological Surgical History: Reports: None Musculoskeletal Surgical History: Reports: None Dermatological Surgical History: Reports: None Social & Family History - Tobacco Use Tobacco Use Status *Q: Current Every Day Tobacco User Years of Tobacco use: 21 Packs/Tins Daily: 1 Used Tobacco, but Quit: No Second Hand Smoke Exposure: No - Caffeine Use Caffeine Use: Reports: Soda - Recreational Drug Use Recreational Drug Use: No ED ROS GENERAL - Review of Systems Review Of Systems: See Below Constitutional: Denies: Fever, Chills HEENT: Reports: No Symptoms Respiratory: Reports: No Symptoms Cardiovascular: Reports: No Symptoms GI/Abdominal: Reports: Other (No pain other than the right groin) : Reports: Urgency, Other (Right groin pain) Skin: Reports: No Symptoms Neurological: Reports: No Symptoms ED EXAM, GENERAL - Physical Exam Exam: See Below Exam Limited By: No Limitations General Appearance: Alert, No Apparent Distress, Other (Does display some discomfort while standing from a sitting position) Head: Atraumatic Respiratory/Chest: No Respiratory Distress GI/Abdominal: Soft, Non-Tender (Male) Exam: No Hernia (He has some soreness around the right inguinal ligament and a small amount of soreness to the right testicle but I do not feel a hernia. Right side was compared to the left side and palpates very similar), Testicular Tenderness (R) Neurological: Alert, Oriented Psychiatric: Normal Affect, Normal Mood Skin Exam: Warm, Dry Course - Vital Signs Text/Narrative:: This patient has a groin strain, no evidence of hernia at this time. Continue with anti-inflammatories and gradual increase activity as tolerated. Last Recorded V/S: Last Vital Signs Temp 97.2 F 12/27/20 08:50 Pulse 90 12/27/20 08:50 Resp 16 12/27/20 08:50 BP 166/108 H 12/27/20 08:50 Pulse Ox 95 12/27/20 08:50 Departure - Departure Time of Disposition: 09:14 Disposition: Home, Self-Care 01 Clinical Impression: Strain of right groin - Discharge Information Instructions: Muscle Strain, [id number] Referrals: Sperle,Darshan J, MD [Primary Care Provider] - Forms: ED Department Discharge Care Plan Goals: Increase activity slowly for the next several days, continue with ibuprofen and return if worsening such as fever, increased pain, nausea or vomiting, or worsening urinary symptoms such as urine retention or blood in the urine. Sepsis Event Note (ED) - Evaluation Sepsis Screening Result: No Definite Risk - Focused Exam Vital Signs: Vital Signs Temp Pulse Resp BP Pulse Ox 12/27/20 08:50 97.2 F 90 16 166/108 H 95 12/27/20 08:47 97.2 F 90 16 166/108 H 95
== END 2020-12-27 09:14 | disposition home or self-care (01) ==
LOC: JP.ED 08:35
DX: S39.011A Strain of muscle, fascia and tendon of abdomen, initial encounter (principal); R39.15 Urgency of urination; I10 Essential (primary) hypertension; J45.909 Unspecified asthma, uncomplicated; E66.9 Obesity, unspecified; Z68.41 Body mass index [BMI] 40.0-44.9, adult; Z72.0 Tobacco use; Z88.0 Allergy status to penicillin; Z88.1 Allergy status to other antibiotic agents; Z79.899 Other long term (current) drug therapy; X50.0XXA Overexertion from strenuous movement or load, initial encounter
CPT/HCPCS: 99282; 99283

== ENCOUNTER 2021-01-15 12:14 | Emergency (ER) | payer MEDICAID ==
[2021-01-15 13:28] VITALS: BP 163/109; PULSE 94
--- NOTE | 2021-01-15 15:11 | EDM.PDOC ---
ED HPI GENERAL MEDICAL PROBLEM - General Chief Complaint: Skin Complaint Stated Complaint: SLIVER UNDER R RING FINGER Time Seen by Provider: 01/15/21 15:06 Source of Information: Reports: Patient, RN Notes Reviewed History Limitations: Reports: No Limitations - History of Present Illness INITIAL COMMENTS - FREE TEXT/NARRATIVE: 40-year-old gentleman presents emergency department today he has a sliver underneath the nail ring finger right hand Right Finger-Ring Pain Score (Numeric/FACES): 3 - Related Data Allergies Allergy/AdvReac Type Severity Reaction Status Date / Time amoxicillin trihydrate Allergy Rash Verified 01/15/21 13:37 [From Augmentin] cefaclor [From Ceclor] Allergy Rash Verified 01/15/21 13:37 erythromycin base Allergy Rash Verified 01/15/21 13:37 [Erythromycin Base] potassium clavulanate Allergy Rash Verified 01/15/21 13:37 [From Augmentin] azithromycin AdvReac Vomiting Verified 01/15/21 13:37 Home Meds: Home Meds Lisinopril [Prinivil] 20 mg PO DAILY 09/21/17 [History] Omeprazole 20 mg PO DAILY PRN 08/17/19 [History] Past Medical History - Past Health History Medical/Surgical History: Denies Medical/Surgical History HEENT History: Reports: Allergic Rhinitis, Impaired Vision Cardiovascular History: Reports: Hypertension Respiratory History: Reports: Asthma, Bronchitis, Recurrent Gastrointestinal History: Reports: Chronic Diarrhea, Hemorrhoids Genitourinary History: Reports: Renal Calculus Musculoskeletal History: Reports: Fracture, Other (See Below) Other Musculoskeletal History: Nose fracture "89 Neurological History: Reports: Concussion, Migraines Psychiatric History: Reports: Anxiety, Depression Endocrine/Metabolic History: Reports: Obesity/BMI 30+ - Infectious Disease History Infectious Disease History: Reports: Chicken Pox, Novel Coronavirus, Shingles - Past Surgical History Head Surgeries/Procedures: Reports: None HEENT Surgical History: Reports: None Cardiovascular Surgical History: Reports: None Respiratory Surgical History: Reports: None GI Surgical History: Reports: Cholecystectomy, EGD, Hernia, Inguinal Endocrine Surgical History: Reports: None Neurological Surgical History: Reports: None Musculoskeletal Surgical History: Reports: None Dermatological Surgical History: Reports: None Social & Family History - Caffeine Use Caffeine Use: Reports: Soda ED ROS GENERAL - Review of Systems Review Of Systems: See Below Constitutional: Reports: No Symptoms Skin: Reports: Wound ED EXAM, SKIN/RASH Exam: See Below Text/Narrative:: There is a small 5 mm sliver underneath the nail bed digit #4 right hand after digital block this was removed with a splinter forceps Course - Vital Signs Last Recorded V/S: Last Vital Signs Temp 97.6 F 01/15/21 13:36 Pulse 94 01/15/21 13:36 Resp 20 01/15/21 13:36 BP 163/109 H 01/15/21 13:36 Pulse Ox 97 01/15/21 13:36 - Orders/Labs/Meds Meds: Medications Discontinued Medications Generic Name Dose Route Start Last Admin Trade Name Frehilario PRN Reason Stop Dose Admin Lidocaine HCl 5 ml 01/15/21 15:10 01/15/21 15:14 Lidocaine 1% 5 Ml Sdv INJECT 01/15/21 15:11 5 ml ONETIME ONE Administration Departure - Departure Time of Disposition: 15:39 Disposition: Home, Self-Care 01 Condition: Good Clinical Impression: Splinter of finger - Discharge Information Instructions: Skin Foreign Body Referrals: Officer,MD Ralph [Primary Care Provider] - Forms: ED Department Discharge Additional Instructions: Follow-up primary care as needed Sepsis Event Note (ED) - Evaluation Sepsis Screening Result: No Definite Risk - Focused Exam Vital Signs: Vital Signs Temp Pulse Resp BP Pulse Ox 01/15/21 13:36 97.6 F 94 20 163/109 H 97 01/15/21 13:27 97.6 F 94 20 163/109 H 97 - Assessment/Plan Plan: Assessment Acuity = acute Site and laterality = splinter digit #4 left hand underneath the nailbed Etiology = trauma Manifestations = none Location of injury = Home Lab values = none Plan Follow-up primary care as needed This note was dictated using [employer] recognition software please call with any questions on syntax or grammar.
== END 2021-01-15 15:54 | disposition home or self-care (01) ==
LOC: JP.ED 12:14
DX: S60.454A Superficial foreign body of right ring finger, initial encounter (principal); I10 Essential (primary) hypertension; J45.909 Unspecified asthma, uncomplicated; E66.9 Obesity, unspecified; Z68.41 Body mass index [BMI] 40.0-44.9, adult; Z88.1 Allergy status to other antibiotic agents; Z88.0 Allergy status to penicillin; W45.8XXA Other foreign body or object entering through skin, initial encounter
CPT/HCPCS: 64450; 99282-25

== ENCOUNTER 2021-02-21 18:39 | Emergency (ER) | payer MEDICAID ==
[2021-02-21 19:00] VITALS: BP 195/121; PULSE 109
[2021-02-21] MEDS ORDERED: HYDROmorphone 0.5 MG/0.5 ML Syringe IVPUSH ONE (19:17)
[2021-02-21] MEDS ORDERED: Ketorolac 30 MG/ML SDV IVPUSH ONE (19:18)
--- NOTE | 2021-02-21 19:19 | EDM.PDOC ---
ED HPI GENERAL MEDICAL PROBLEM - General Stated Complaint: MIGRAINE, CHEST PAIN Time Seen by Provider: 02/21/21 19:10 Source of Information: Reports: Patient History Limitations: Reports: No Limitations - History of Present Illness INITIAL COMMENTS - FREE TEXT/NARRATIVE: 40-year-old male arrives with left-sided chest pain and a migraine headache for the past 24 hours. He is taking his abortive medications such as Imitrex without relief, ibuprofen does not seem to help much. His chest pain is worse with lying down or breathing, no fevers or chills, no significant cough. Headache is left-sided, throbbing, he has photophobia but no vomiting. It is not a lot different from his previous headaches. Onset: Gradual Duration: Hour(s): (24 hours) Location: Reports: Head, Chest Associated Symptoms: Reports: Chest Pain, Headaches, Malaise. Denies: Fever/Chills, Loss of Appetite, Nausea/Vomiting, Weakness Left Headache Pain Score (Numeric/FACES): 10 Mid-Sternal Chest Pain Score (Numeric/FACES): 8 - Related Data Allergies Allergy/AdvReac Type Severity Reaction Status Date / Time amoxicillin trihydrate Allergy Rash Verified 02/21/21 18:53 [From Augmentin] cefaclor [From Ceclor] Allergy Rash Verified 02/21/21 18:53 erythromycin base Allergy Rash Verified 02/21/21 18:53 [Erythromycin Base] potassium clavulanate Allergy Rash Verified 02/21/21 18:53 [From Augmentin] azithromycin AdvReac Vomiting Verified 02/21/21 18:53 Home Meds: Home Meds Lisinopril [Prinivil] 10 mg PO DAILY 09/21/17 [History] Omeprazole 20 mg PO DAILY PRN 08/17/19 [History] Past Medical History - Past Health History Medical/Surgical History: Denies Medical/Surgical History HEENT History: Reports: Allergic Rhinitis, Impaired Vision Cardiovascular History: Reports: Hypertension Respiratory History: Reports: Asthma, Bronchitis, Recurrent Gastrointestinal History: Reports: Chronic Diarrhea, Hemorrhoids Genitourinary History: Reports: Renal Calculus Musculoskeletal History: Reports: Fracture, Other (See Below) Other Musculoskeletal History: Nose fracture "89 Neurological History: Reports: Concussion, Migraines Psychiatric History: Reports: Anxiety, Depression Endocrine/Metabolic History: Reports: Obesity/BMI 30+ - Infectious Disease History Infectious Disease History: Reports: Chicken Pox, Novel Coronavirus, Shingles - Past Surgical History Head Surgeries/Procedures: Reports: None HEENT Surgical History: Reports: None Cardiovascular Surgical History: Reports: None Respiratory Surgical History: Reports: None GI Surgical History: Reports: Cholecystectomy, EGD, Hernia, Inguinal Endocrine Surgical History: Reports: None Neurological Surgical History: Reports: None Musculoskeletal Surgical History: Reports: None Dermatological Surgical History: Reports: None Social & Family History - Tobacco Use Tobacco Use Status *Q: Current Every Day Tobacco User Years of Tobacco use: 20 Packs/Tins Daily: 1 - Caffeine Use Caffeine Use: Reports: Soda - Alcohol Use Date of Last Drink: 02/21/21 - Recreational Drug Use Recreational Drug Use: No ED ROS GENERAL - Review of Systems Review Of Systems: See Below Constitutional: Reports: Malaise. Denies: Fever, Chills HEENT: Reports: Other (Photophobia). Denies: Vision Change Respiratory: Reports: Pleuritic Chest Pain. Denies: Cough Cardiovascular: Reports: Chest Pain (Left-sided anterior pain, radiates through to the back) GI/Abdominal: Reports: Nausea (Minimal nausea no vomiting). Denies: Abdominal Pain, Vomiting : Reports: No Symptoms Musculoskeletal: Denies: Neck Pain Neurological: Reports: Headache ED EXAM, GENERAL - Physical Exam Exam: See Below Exam Limited By: No Limitations General Appearance: Alert, Mild Distress (Appears quite uncomfortable, needs the lights off) Eye Exam: Bilateral Eye: PERRL Neck: Supple, Non-Tender Respiratory/Chest: No Respiratory Distress, Lungs Clear, Other (I cannot rep roduce chest pain significantly with chest palpation) Cardiovascular: Regular Rate, Rhythm GI/Abdominal: Soft, Non-Tender Extremities: Normal Inspection Neurological: Alert, Oriented Psychiatric: Flat Affect Skin Exam: Warm, Dry #1 Interpretation EKG Date: 02/21/21 Rhythm: NSR Course - Vital Signs Last Recorded V/S: Last Vital Signs Temp 98.2 F 02/21/21 18:58 Pulse 109 H 02/21/21 18:58 Resp 15 02/21/21 18:58 BP 195/121 H 02/21/21 18:58 Pulse Ox 98 02/21/21 18:58 - Orders/Labs/Meds Orders: Active Orders 24 hr Category Date Time Status Chest 2V [CR] Routine Exams 02/21/21 19:18 Taken EKG 12 Lead [EK] Routine Ther 02/21/21 19:18 Ordered Labs: Laboratory Tests 02/21/21 02/21/21 02/21/21 Range/Units 19:32 19:32 19:32 WBC 9.5 (4.5-11.0) K/uL RBC 5.12 (4.30-5.90) M/uL Hgb 16.2 H (12.0-15.0) g/dL Hct 48.9 (40.0-54.0) % MCV 96 (80-98) fL MCH 32 H (27-31) pg MCHC 33 (32-36) % Plt Count 238 (150-400) K/uL Neut % (Auto) 71 H (36-66) % Lymph % (Auto) 18 L (24-44) % [place] % (Auto) 9 H (2-6) % Eos % (Auto) 1 L (2-4) % Baso % (Auto) 1 (0-1) % D-Dimer, Quantitative 212.44 (0.0-500.0) ng/mL Sodium 143 (140-148) mmol/L Potassium 3.8 (3.6-5.2) mmol/L Chloride 105 (100-108) mmol/L Carbon Dioxide 27 (21-32) mmol/L Anion Gap 14.8 H (5.0-14.0) mmol/L BUN 19 H (7-18) mg/dL Creatinine 1.2 (0.8-1.3) mg/dL Est Cr Clr Drug Dosing 94.19 mL/min Estimated GFR (MDRD) > 60 (>60) Glucose 94 (74-106) mg/dL Calcium 9.2 (8.5-10.1) mg/dL Total Bilirubin 0.4 (0.2-1.0) mg/dL AST 22 (15-37) U/L ALT 59 (12-78) U/L Alkaline Phosphatase 62 (46-116) U/L Troponin I < 0.017 (0.000-0.056) ng/mL Total Protein 7.1 (6.4-8.2) g/dL Albumin 3.9 (3.4-5.0) g/dL Globulin 3.2 (2.3-3.5) g/dL Albumin/Globulin Ratio 1.2 (1.2-2.2) Meds: Medications Discontinued Medications Generic Name Dose Route Start Last Admin Trade Name Rodri PRN Reason Stop Dose Admin Hydromorphone HCl 0.5 mg 02/21/21 19:17 02/21/21 19:37 Hydromorphone 0.5 Mg/0.5 Ml Syringe IVPUSH 02/21/21 19:18 0.5 mg ONETIME ONE Administration Sodium Chloride 1,000 mls @ 250 mls/hr 02/21/21 19:30 02/21/21 19:34 Normal Saline IV 250 mls/hr ASDIRECTED VALERIE Administration Ketorolac Tromethamine 30 mg 02/21/21 19:18 02/21/21 19:34 Ketorolac 30 Mg/Ml Sdv IVPUSH 02/21/21 19:19 30 mg ONETIME ONE Administration Methylprednisolone Sodium Succinate 125 mg 02/21/21 20:43 02/21/21 20:50 Methylprednisolone Sodium Succinate 125 Mg/2 Ml Sdv IVPUSH 02/21/21 20:44 125 mg ONETIME ONE Administration - Re-Assessments/Exams Free Text/Narrative Re-Assessment/Exam: 02/21/21 20:35 EKG done on arrival was normal, IV was started and the patient will be given 30 mg of IV Toradol and 0.5 mg of Dilaudid. Two-view chest x-ray, CBC, CMP, troponin and D-dimer obtained. He was moderately hypertensive on arrival. Chest x-ray is stable, nothing acute. CBC is normal, he has responded fairly well to the medications and the rest of the labs are still pending. 02/21/21 20:41 Troponin is 0, D-dimer is normal and the rest of his labs were normal as well. I went in and talked with the patient and is now sitting up with his eyes open, much more comfortable. Going to give him 1 dose of IV Solu-Medrol to knock down the inflammatory response, and discharge him with 10 doses of ketorolac to use up to 3 times daily. He will rest for the next day or 2. Departure - Departure Time of Disposition: 20:50 Disposition: Home, Self-Care 01 Clinical Impression: Atypical chest pain Migraine Qualifiers: Migraine type: with aura Status migrainosus presence: without status migrainosus Intractability: not intractable Qualified Code(s): G43.109 - Migraine with aura, not intractable, without status migrainosus - Discharge Information Instructions: Migraine Headache, [id number], Nonspecific Chest Pain, Adult Referrals: Darshan Deluna MD [Primary Care Provider] - Forms: ED Department Discharge Care Plan Goals: Rest tonight, use ketorolac every 6-8 hours for persistent headache or pain over the next 2 to 3 days. Increase activity as tolerated and return if worsening despite treatment. Sepsis Event Note (ED) - Evaluation Sepsis Screening Result: No Definite Risk - Focused Exam Vital Signs: Vital Signs Temp Pulse Resp BP Pulse Ox 02/21/21 18:58 98.2 F 109 H 15 195/121 H 98 02/21/21 18:57 95 - My Orders Last 24 Hours: My Active Orders 02/21/21 19:18 Chest 2V [CR] Routine EKG 12 Lead [EK] Routine - Assessment/Plan Last 24 Hours: My Active Orders 02/21/21 19:18 Chest 2V [CR] Routine EKG 12 Lead [EK] Routine
[2021-02-21] MEDS ORDERED: Sodium Chloride 0.9% 1,000 ML IV SCH (19:30)
[2021-02-21] MEDS ORDERED: methylPREDNISolone Sodium Succinate 125 MG/2 ML SDV IVPUSH ONE (20:43)
--- NOTE | 2021-02-22 10:28 | CRLCR ---
INDICATION: dyspnea TECHNIQUE: Chest 2 views. COMPARISION; 12/11/17 FINDINGS: Cardiovascular and mediastinum: Heart size and vasculature are normal in caliber and appearance. Mediastinum is within normal limits. Lungs and pleural spaces: Lungs are clear. No sign of infiltrate or mass. No sign of pleural effusion. No pneumothorax. Bones and soft tissues: No significant findings. IMPRESSION: Unremarkable chest. Dictated by: Chriss Rizvi MD @ 02/22/2021 10:26:18 (Electronically Signed)
== END 2021-02-21 21:03 | disposition home or self-care (01) ==
LOC: JP.ED 18:39
DX: G43.109 Migraine with aura, not intractable, without status migrainosus (principal); R07.89 Other chest pain; I10 Essential (primary) hypertension; Z88.0 Allergy status to penicillin; Z88.1 Allergy status to other antibiotic agents; E66.9 Obesity, unspecified; Z68.41 Body mass index [BMI] 40.0-44.9, adult; Z86.16 Personal history of COVID-19; Z79.899 Other long term (current) drug therapy; Z72.0 Tobacco use
CPT/HCPCS: 36415; 71046; 80053; 84484; 85025; 85379; 93005; 96374; 96375; 99284; 99285-25; J1170; J1885; J2930; J7030

== ENCOUNTER 2021-04-20 09:10 | Emergency (ER) | payer MEDICAID ==
[2021-04-20] MEDS ORDERED: methylPREDNISolone Sodium Succinate 125 MG/2 ML SDV IV ONE (09:17)
[2021-04-20] MEDS ORDERED: diphenhydrAMINE 50 MG/ML SDV IM ONE (09:17)
[2021-04-20] MEDS ORDERED: Famotidine 20 MG/2 ML SDV IVPUSH ONE (09:17)
[2021-04-20] MEDS ORDERED: EPINEPHrine 1 MG/ML SDV IM ONE (09:17)
[2021-04-20] MEDS ORDERED: Sodium Chloride 0.9% 10 ML Syringe FLUSH PRN ×2 (09:17)
[2021-04-20] MEDS ORDERED: Albuterol 0.083% 2.5 MG/3 ML Neb Soln NEB STA (09:17)
[2021-04-20 09:24] VITALS: BP 160/102
--- NOTE | 2021-04-20 09:29 | EDM.PDOC ---
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 - Related Data Allergies Allergy/AdvReac Type Severity Reaction Status Date / Time amoxicillin trihydrate Allergy Rash Verified 04/20/21 09:43 [From Augmentin] cefaclor [From Ceclor] Allergy Rash Verified 04/20/21 09:43 erythromycin base Allergy Rash Verified 04/20/21 09:43 [Erythromycin Base] potassium clavulanate Allergy Rash Verified 04/20/21 09:43 [From Augmentin] azithromycin AdvReac Vomiting Verified 04/20/21 09:43 Home Meds: Home Meds Lisinopril [Prinivil] 10 mg PO DAILY 09/21/17 [History] Omeprazole 20 mg PO DAILY PRN 08/17/19 [History] EPINEPHrine [Epipen] 0.3 mg IM ONETIME PRN #2 ml 04/20/21 [Rx] Past Medical History HEENT History: Reports: Allergic Rhinitis, Impaired Vision Cardiovascular History: Reports: Hypertension Respiratory History: Reports: Asthma, Bronchitis, Recurrent Gastrointestinal History: Reports: Chronic Diarrhea, Hemorrhoids Genitourinary History: Reports: Renal Calculus Musculoskeletal History: Reports: Fracture, Other (See Below) Other Musculoskeletal History: Nose fracture "89 Neurological History: Reports: Concussion, Migraines Psychiatric History: Reports: Anxiety, Depression Endocrine/Metabolic History: Reports: Obesity/BMI 30+ - Infectious Disease History Infectious Disease History: Reports: Chicken Pox, Novel Coronavirus, Shingles - Past Surgical History Head Surgeries/Procedures: Reports: None HEENT Surgical History: Reports: None Cardiovascular Surgical History: Reports: None Respiratory Surgical History: Reports: None GI Surgical History: Reports: Cholecystectomy, EGD, Hernia, Inguinal Endocrine Surgical History: Reports: None Neurological Surgical History: Reports: None Musculoskeletal Surgical History: Reports: None Dermatological Surgical History: Reports: None Social & Family History - Caffeine Use Caffeine Use: Reports: Soda ED ROS GENERAL - Review of Systems Review Of Systems: See Below HEENT: Reports: Throat Swelling Respiratory: Reports: Shortness of Breath Cardiovascular: Reports: No Symptoms ED EXAM, ANIMAL BITE - Physical Exam Exam: See Below Exam Limited By: No Limitations General Appearance: Alert, Mild Distress Respiratory/Chest: No Accessory Muscle Use, Respiratory Distress, Decreased Breath Sounds Cardiovascular: Regular Rate, Rhythm, No Murmur Course - Vital Signs Last Recorded V/S: Last Vital Signs Temp 97.5 F 04/20/21 09:41 Pulse 94 04/20/21 10:47 Resp 14 04/20/21 10:47 BP 160/102 H 04/20/21 09:41 Pulse Ox 100 04/20/21 10:47 - Orders/Labs/Meds Orders: Active Orders 24 hr Category Date Time Status Peripheral IV Care [RC] . DIRECTED Care 04/20/21 09:18 Active Sodium Chloride 0.9% [Saline Flush] Med 04/20/21 09:17 Active 10 ml FLUSH ASDIRECTED PRN Sodium Chloride 0.9% [Saline Flush] Med 04/20/21 09:17 Active 10 ml FLUSH ASDIRECTED PRN Peripheral IV Insertion Adult [OM.PC] Urgent Oth 04/20/21 09:17 Ordered Medication Orders Sodium Chloride (Sodium Chloride 0.9% 10 Ml Syringe) 10 ml FLUSH ASDIRECTED PRN PRN Reason: Keep Vein Open Last Admin: 04/20/21 09:37 Dose: 10 ml Documented by: KAILASH Sodium Chloride (Sodium Chloride 0.9% 10 Ml Syringe) 10 ml FLUSH ASDIRECTED PRN PRN Reason: Keep Vein Open Meds: Medications Generic Name Dose Route Start Last Admin Trade Name Freq PRN Reason Stop Dose Admin Sodium Chloride 10 ml 04/20/21 09:17 04/20/21 09:37 Sodium Chloride 0.9% 10 Ml Syringe FLUSH 10 ml ASDIRECTED PRN Administration Keep Vein Open Sodium Chloride 10 ml 04/20/21 09:17 Sodium Chloride 0.9% 10 Ml Syringe FLUSH ASDIRECTED PRN Keep Vein Open Discontinued Medications Generic Name Dose Route Start Last Admin Trade Name Freq PRN Reason Stop Dose Admin Albuterol 2.5 mg 04/20/21 09:17 04/20/21 09:34 Albuterol 0.083% 2.5 Mg/3 Ml Neb Soln NEB 04/20/21 09:18 2.5 mg NOW STA Administration Diphenhydramine HCl 50 mg 04/20/21 09:17 04/20/21 09:36 Diphenhydramine 50 Mg/Ml Sdv IM 04/20/21 09:18 50 mg ONETIME ONE Administration Epinephrine HCl 0.5 mg 04/20/21 09:17 04/20/21 09:36 Epinephrine 1 Mg/Ml Sdv IM 04/20/21 09:18 0.5 mg ONETIME ONE Administration Famotidine 20 mg 04/20/21 09:17 04/20/21 09:36 Famotidine 20 Mg/2 Ml Sdv IVPUSH 04/20/21 09:18 20 mg ONETIME ONE Administration Methylprednisolone Sodium Succinate 125 mg 04/20/21 09:17 04/20/21 09:35 Methylprednisolone Sodium Succinate 125 Mg/2 Ml Sdv IV 04/20/21 09:18 125 mg ONETIME ONE Administration Departure - Departure Time of Disposition: 10:51 Disposition: Home, Self-Care 01 Condition: Fair Clinical Impression: Allergic reaction to bee sting - Discharge Information Prescriptions: EPINEPHrine [Epipen] 0.3 mg IM ONETIME PRN #2 ml PRN Reason: Allergies Instructions: Animal Bite, Adult, [id number] Referrals: Darshan Deluna MD [Primary Care Provider] - Forms: ED Department Discharge Additional Instructions: Please carry your EpiPen with you and use if needed when stung by bee, please followup with your primary care provider in 3-5 days if not better, please call return to the emergency department with worsening of symptoms. I did fax a prescription for the EpiPen to [facility] Sepsis Event Note (ED) - Focused Exam Vital Signs: Vital Signs Temp Pulse Resp BP Pulse Ox 04/20/21 10:47 94 14 100 04/20/21 09:41 97.5 F 100 20 160/102 H 95 04/20/21 09:40 94 17 170/100 H 92 L 04/20/21 09:22 97.5 F 100 20 160/102 H 95 - My Orders Last 24 Hours: My Active Orders 04/20/21 09:17 Sodium Chloride 0.9% [Saline Flush] 10 ml FLUSH ASDIRECTED PRN Sodium Chloride 0.9% [Saline Flush] 10 ml FLUSH ASDIRECTED PRN Peripheral IV Insertion Adult [OM.PC] Urgent 04/20/21 09:18 Peripheral IV Care [RC] . DIRECTED - Assessment/Plan Last 24 Hours: My Active Orders 04/20/21 09:17 Sodium Chloride 0.9% [Saline Flush] 10 ml FLUSH ASDIRECTED PRN Sodium Chloride 0.9% [Saline Flush] 10 ml FLUSH ASDIRECTED PRN Peripheral IV Insertion Adult [OM.PC] Urgent 04/20/21 09:18 Peripheral IV Care [RC] . DIRECTED Plan: Assessment Acuity = acute Site and laterality = allergic reaction Etiology = bee sting Manifestations = none Location of injury = Home Lab values = none Plan Good improvement combination epinephrine, Solu-Medrol, Benadryl, Pepcid, I did ask him to stay longer for concerns about rebound but he was persistent that he wanted to return back to work I did write a prescription for EpiPen faxed to his pharmacy at [facility] follow-up primary care 3 to 5 days if no improvement This note was dictated using [email or web address] voice recognition software please call with any questions on syntax or grammar.
[2021-04-20 10:48] VITALS: PULSE 94
== END 2021-04-20 11:08 | disposition home or self-care (01) ==
LOC: JP.ED 09:10
DX: T63.441A Toxic effect of venom of bees, accidental (unintentional), initial encounter (principal); I10 Essential (primary) hypertension; J45.909 Unspecified asthma, uncomplicated; E66.9 Obesity, unspecified; Z68.42 Body mass index [BMI] 45.0-49.9, adult; Z88.0 Allergy status to penicillin; Z88.1 Allergy status to other antibiotic agents; Z79.899 Other long term (current) drug therapy
CPT/HCPCS: 94640; 96372; 96374; 96375; 99284; J0171; J1200; J2930; J3490

== ENCOUNTER 2021-05-16 09:25 | Emergency (ER) | payer MEDICAID ==
[2021-05-16] MEDS ORDERED: diphenhydrAMINE 50 MG/ML SDV IVPUSH ONE (09:40)
[2021-05-16] MEDS ORDERED: methylPREDNISolone Sodium Succinate 125 MG/2 ML SDV IVPUSH ONE (09:40)
--- NOTE | 2021-05-16 09:47 | EDM.PDOC ---
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 He was only a few blocks away from his car, so he drove there, injected himself with his EpiPen, and came immediately to the hospital. Feels chest tightness and mild shortness of breath, diaphoresis, and an itchy neck and throat. Onset: Sudden Duration: Minutes: (Stung about 20 minutes ago) Location: Reports: Upper Extremity, Left Associated Symptoms: Reports: Chest Pain, Diaphoresis, Malaise, Shortness of Breath, Other (Itchiness in his throat). Denies: Cough, Nausea/Vomiting Left Upper Arm Pain Score (Numeric/FACES): 5 - Related Data Allergies Allergy/AdvReac Type Severity Reaction Status Date / Time amoxicillin trihydrate Allergy Rash Verified 05/16/21 09:33 [From Augmentin] bee venom protein (honey bee) Allergy Airway Verified 05/16/21 09:33 Tightness cefaclor [From Ceclor] Allergy Rash Verified 05/16/21 09:33 erythromycin base Allergy Rash Verified 05/16/21 09:33 [Erythromycin Base] potassium clavulanate Allergy Rash Verified 05/16/21 09:33 [From Augmentin] azithromycin AdvReac Vomiting Verified 05/16/21 09:33 Home Meds: Home Meds Lisinopril [Prinivil] 10 mg PO DAILY 09/21/17 [History] Omeprazole 20 mg PO DAILY PRN 08/17/19 [History] EPINEPHrine [Epipen] 0.3 mg IM ONETIME PRN #2 ml 04/20/21 [Rx] Past Medical History HEENT History: Reports: Allergic Rhinitis, Impaired Vision Cardiovascular History: Reports: Hypertension Respiratory History: Reports: Asthma, Bronchitis, Recurrent Gastrointestinal History: Reports: Chronic Diarrhea, Hemorrhoids Genitourinary History: Reports: Renal Calculus Musculoskeletal History: Reports: Fracture, Other (See Below) Other Musculoskeletal History: Nose fracture "89 Neurological History: Reports: Concussion, Migraines Psychiatric History: Reports: Anxiety, Depression Endocrine/Metabolic History: Reports: Obesity/BMI 30+ - Infectious Disease History Infectious Disease History: Reports: Chicken Pox, Novel Coronavirus, Shingles - Past Surgical History Head Surgeries/Procedures: Reports: None HEENT Surgical History: Reports: None Cardiovascular Surgical History: Reports: None Respiratory Surgical History: Reports: None GI Surgical History: Reports: Cholecystectomy, EGD, Hernia, Inguinal Endocrine Surgical History: Reports: None Neurological Surgical History: Reports: None Musculoskeletal Surgical History: Reports: None Dermatological Surgical History: Reports: None Social & Family History - Caffeine Use Caffeine Use: Reports: Soda ED ROS GENERAL - Review of Systems Review Of Systems: See Below Constitutional: Denies: Fever, Chills HEENT: Denies: Throat Pain (Some itchiness but no significant swelling, blockage or pain) Respiratory: Reports: Shortness of Breath, Other (Chest tightness) Cardiovascular: Denies: Palpitations GI/Abdominal: Denies: Abdominal Pain, Nausea, Vomiting Musculoskeletal: Reports: Other (Left elbow pain from the recent sting) Skin: Reports: Pallor, Diaphoresis Neurological: Denies: Headache Psychiatric: Reports: Anxiety ED EXAM, ANIMAL BITE - Physical Exam Exam: See Below Exam Limited By: No Limitations General Appearance: Alert, Anxious (Extremely anxious on arrival, diaphoretic and pale) Eye Exam: Bilateral Eye: Normal Inspection Throat/Mouth: Other (No oral edema or swelling) Head: Atraumatic Neck: Supple, Non-Tender Respiratory/Chest: Lungs Clear (Lungs are completely clear, no wheezing) Cardiovascular: Regular Rate, Rhythm. No: Tachycardia GI/Abdominal: Soft, Non-Tender Extremities: Other (Patient has a small hive-like inflammatory spot on the inside of the left elbow from his recent sting, other than pallor and diaphoresis there are no other integumentary findings such as rash or hives) Neurological: Alert, Oriented Psychiatric: Anxious Course - Vital Signs Last Recorded V/S: Last Vital Signs Temp 95.2 F L 05/16/21 09:30 Pulse 79 05/16/21 10:40 Resp 13 05/16/21 10:40 BP 150/94 H 05/16/21 10:40 Pulse Ox 94 L 05/16/21 10:40 - Orders/Labs/Meds Meds: Medications Discontinued Medications Generic Name Dose Route Start Last Admin Trade Name Rodri PRN Reason Stop Dose Admin Diphenhydramine HCl 25 mg 05/16/21 09:40 05/16/21 09:45 Diphenhydramine 50 Mg/Ml Sdv IVPUSH 05/16/21 09:41 25 mg ONETIME ONE Administration Methylprednisolone Sodium Succinate 125 mg 05/16/21 09:40 05/16/21 09:45 Methylprednisolone Sodium Succinate 125 Mg/2 Ml Sdv IVPUSH 05/16/21 09:41 125 mg ONETIME ONE Administration - Re-Assessments/Exams Free Text/Narrative Re-Assessment/Exam: 05/16/21 09:47 There is really no objective findings of a diffuse allergic reaction to this bee sting, however he did take an EpiPen prior to coming in which could easily mask symptoms. An IV was started and the patient was given 125 mg of Solu-Medrol and 25 mg of Benadryl. He will be observed for a period of time but is very stable. 05/16/21 10:20 Patient was rechecked 30 minutes after the medications and remained stable, still no objective signs of systemic reaction and breathing was improving. Departure - Departure Time of Disposition: 11:07 Disposition: Home, Self-Care 01 Clinical Impression: Accidental wasp sting - Discharge Information Instructions: Bee, Wasp, or Hornet Sting, Adult Referrals: PCP,None [Primary Care Provider] - Forms: ED Department Discharge Care Plan Goals: Rest today, stay hydrated and retake 50 mg of Benadryl every 4-6 hours if needed for any persistent itching or discomfort. Return if worsening such as widespread rash or difficulty breathing. Sepsis Event Note (ED) - Evaluation Sepsis Screening Result: No Definite Risk - Focused Exam Vital Signs: Vital Signs Temp Pulse Resp BP Pulse Ox 05/16/21 10:40 79 13 150/94 H 94 L 05/16/21 09:30 95.2 F L 89 14 178/110 H 95
[2021-05-16 10:40] VITALS: BP 150/94; PULSE 79
== END 2021-05-16 11:08 | disposition home or self-care (01) ==
LOC: JP.ED 09:25
DX: T63.461A Toxic effect of venom of wasps, accidental (unintentional), initial encounter (principal); I10 Essential (primary) hypertension; E66.9 Obesity, unspecified; Z68.41 Body mass index [BMI] 40.0-44.9, adult; Z88.0 Allergy status to penicillin; Z91.030 Bee allergy status; Z79.899 Other long term (current) drug therapy
CPT/HCPCS: 96374; 96375; 99282; J1200; J2930

== ENCOUNTER → 2021-05-26 | Day surgery (SDC) | payer MEDICAID ==
[~2021-05-26] MED LIST: Dextrose 5%-Lactated Ringers 1,000 ML IV SCH; Glycopyrrolate 0.2 MG/ML 2 ML SDV IVPUSH ONE; Midazolam 1 MG/ML 2 ML SDV ONE; Propofol 200 MG/20 ML SDV ONE; fentaNYL 100 MCG/2 ML SDV ONE
[2021-05-26 11:29] VITALS: BP 135/89; PULSE 89
--- NOTE | 2021-06-06 13:10 | OR ---
DATE OF PROCEDURE: 05/26/2021 SURGEON: Lavon Mccloud MD PREOPERATIVE DIAGNOSIS: Epigastric pain and heartburn. POSTOPERATIVE DIAGNOSES: Epigastric pain and heartburn associated with: 1. Small hiatal hernia without gross inflammation, esophagogastric junction. 2. Large gastric bezoar with generalized gastritis. OPERATIVE PROCEDURES: Esophagogastroduodenoscopy with biopsies of antrum for CLOtest. ANESTHESIA: IV sedation. INDICATIONS FOR PROCEDURE: This is a 40-year-old male presenting with increasing problems with some heartburn as well as epigastric discomfort. The plan is to proceed with an upper GI endoscopy for diagnostic purposes. Potential risks including bleeding and perforation were discussed and the patient wishes to proceed. DETAILS OF THE PROCEDURE: The patient was taken to the operating room and placed in a left lateral decubitus position. IV sedation was administered, after which the upper GI endoscope was passed orally through the length of the esophagus into the stomach with retroflexion view of the fundus, and thereafter, through the pyloric channel and into the proximal duodenum. Findings included normal hypopharynx, larynx, upper esophageal sphincter, and esophageal body. The patient had a small hiatal hernia, but there was no gross inflammation at esophagogastric junction. No upward extension of the columnar mucosa above the gastric fold. Within the stomach, it was noted that the patient had a large gastric bezoar, large amount of bile-stained solid material within it. There was also some bile staining in the gastric mucosa and there was generalized gastritis, likely related to the bile and bezoar. No ulcers or erosions were noted. The pyloric channel was noted to be widely patent and the duodenum and duodenal junction to the 3rd and 4th portions was unremarkable. At this point, biopsies were obtained from the antrum and sent for CLOtest for H pylori and the procedure then concluded. The plan will be to provide the patient with some counseling regarding anti-bezoar diet and then we will add Zithromax 125 mg b.i.d. to augment gastric emptying and see the patient back on 06/01/2021. Discussed long-term treatment options. Lavon Mccloud MD /[id number]
== END ==
LOC: JP.SDS 07:58
PROVIDERS: ATTEND Surgery
DX: T18.2XXA Foreign body in stomach, initial encounter (principal); K29.70 Gastritis, unspecified, without bleeding; K44.9 Diaphragmatic hernia without obstruction or gangrene; I10 Essential (primary) hypertension; E78.5 Hyperlipidemia, unspecified; E66.01 Morbid (severe) obesity due to excess calories; Z68.45 Body mass index [BMI] 70 or greater, adult; Z01.812 Encounter for preprocedural laboratory examination; Z20.822 Contact with and (suspected) exposure to COVID-19
CPT/HCPCS: 87081; J2250; J2704; J3010; J3490; J7121; U0002

== ENCOUNTER 2022-10-05 14:34 | Emergency (ER) | payer MEDICAID ==
[2022-10-05] MEDS ORDERED: Aspirin 81 MG Tab.Chew PO ONE (14:41)
[2022-10-05] MEDS ORDERED: Nitroglycerin 0.4 MG Tab.SL SL ONE (15:03)
[2022-10-05 15:40] LABS: ESTIMATED GFR 85 mL/min (>60); TROPONIN I HIGH SENSITIVITY 8.4 pg/mL (<=60.3)
[2022-10-05] MEDS ORDERED: Hydrochlorothiazide 12.5 MG Cap PO SCH (16:00)
[2022-10-05] MEDS ORDERED: Lisinopril 10 MG Tab PO SCH (16:00)
[2022-10-05 16:11] VITALS: BP 162/105; PULSE 91
== END 2022-10-05 16:22 | disposition home or self-care (01) ==
LOC: JP.ED 14:34
DX: R07.89 Other chest pain (principal); R73.01 Impaired fasting glucose; I10 Essential (primary) hypertension; E78.5 Hyperlipidemia, unspecified; E66.9 Obesity, unspecified; Z86.16 Personal history of COVID-19; Z91.030 Bee allergy status; Z88.0 Allergy status to penicillin; Z88.1 Allergy status to other antibiotic agents; Z68.42 Body mass index [BMI] 45.0-49.9, adult
CPT/HCPCS: 36415; 71045; 80053; 84484; 85025; 93005; 99285; A9270

== ENCOUNTER 2023-05-30 16:43 | Emergency (ER) | payer MEDICAID ==
[2023-05-30] MEDS ORDERED: methylPREDNISolone Sodium Succinate 125 MG/2 ML SDV IVPUSH ONE (17:01)
[2023-05-30 17:52] VITALS: BP 151/87; PULSE 89
== END 2023-05-30 18:10 | disposition home or self-care (01) ==
LOC: JP.ED 16:43
DX: T63.441A Toxic effect of venom of bees, accidental (unintentional), initial encounter (principal); I10 Essential (primary) hypertension; J45.909 Unspecified asthma, uncomplicated; E66.9 Obesity, unspecified; Z68.42 Body mass index [BMI] 45.0-49.9, adult; Z86.16 Personal history of COVID-19; Z79.899 Other long term (current) drug therapy; Z88.1 Allergy status to other antibiotic agents; Z91.030 Bee allergy status; Z88.0 Allergy status to penicillin
CPT/HCPCS: 96374; 99283; J2930

== ENCOUNTER 2023-06-10 10:34 | Emergency (ER) | payer MEDICAID ==
[2023-06-10 13:16] VITALS: BP 165/95; PULSE 87
== END 2023-06-10 16:02 | disposition home or self-care (01) ==
LOC: JP.ED 10:34
DX: L03.115 Cellulitis of right lower limb (principal); I10 Essential (primary) hypertension; J45.909 Unspecified asthma, uncomplicated; E11.9 Type 2 diabetes mellitus without complications; Z88.1 Allergy status to other antibiotic agents; Z91.030 Bee allergy status; Z88.8 Allergy status to other drugs, medicaments and biological substances
CPT/HCPCS: 99283

== ENCOUNTER 2023-11-22 20:37 | Emergency (ER) | payer MEDICAID ==
[2023-11-22 20:52] LABS: BASOPHILS ABSOLUTE AUTO 0.09 K/uL (0.00-0.10); BASOPHILS PERCENT AUTO 0.6 % (0.1-1.3); EOSINOPHILS ABSOLUTE AUTO 0.36 K/uL (0.00-0.40); EOSINOPHILS PERCENT AUTO 2.5 % (0.0-5.4); HEMATOCRIT 54.6 % (38.4-49.7); IMMATURE GRAN PERCENT AUTO 0.7 % (0.0-0.7); LYMPHOCYTES ABSOLUTE AUTO 2.45 K/uL (0.8-3.3); LYMPHOCYTES PERCENT AUTO 16.7 % (11.4-47.7); MEAN CORPUSCULAR HEMOGLOBIN 30.8 pg (31.6-35.5); MEAN CORPUSCULAR HGB CONC 33.2 g/dL (31.6-35.5); MONOCYTES ABSOLUTE AUTO 0.96 K/uL (0.20-0.90); MONOCYTES PERCENT AUTO 6.5 % (3.3-12.6); PLATELET COUNT,PLT 286 K/uL (130-375); RED BLOOD CELL COUNT 5.87 M/uL (4.14-5.76); WHITE BLOOD CELL COUNT,WBC 14.7 K/uL (3.2-11.0)
[2023-11-22] MEDS: Nitroglycerin 0.4 MG Tab.SL SL ONE (20:56)
[2023-11-22 21:02] LABS: HEMOGLOBIN 18.1 g/dL (12.9-16.9)
[2023-11-22 21:16] LABS: ALANINE AMINOTRANSFERASE,ALT 101 U/L (12-78); ALBUMIN 4.2 g/dL (3.4-5.0); ALKALINE PHOSPHATASE 69 U/L (46-116); ASPARTATE AMNIOTRANSFERASE,AST 33 U/L (15-37); BILIRUBIN TOTAL 0.4 mg/dL (0.2-1.0); BLOOD UREA NITROGEN,BUN 18 mg/dL (7-18); CALCIUM 9.3 mg/dL (8.5-10.1); CARBON DIOXIDE,CO2 29 mmol/L (21-32); CHLORIDE,CL 100 mmol/L (100-108); CREATININE 1.1 mg/dL (0.8-1.3); EST CRCL DRUG DOSING (CG) 99.64 mL/min; ESTIMATED GFR 85 mL/min (>60); GLUCOSE RANDOM 167 mg/dL (74-106); POTASSIUM,K 4.6 mmol/L (3.6-5.2); PROTEIN TOTAL,TP 8.6 g/dL (6.4-8.2); SODIUM,NA 139 mmol/L (140-148); TROPONIN I HIGH SENSITIVITY 5.4 pg/mL (<=60.3)
[2023-11-22 21:17] LABS: ANION GAP 14.6 mmol/L (5.0-14.0)
[2023-11-22 21:33] LABS: CORONAVIRUS COVID-19 NAA NEGATIVE (NEGATIVE); INFLUENZA A NAA NEGATIVE (NEGATIVE); INFLUENZA B NAA NEGATIVE (NEGATIVE); RESPIRATORY SYNCYTIAL VIR NAA NEGATIVE (NEGATIVE)
[2023-11-22] MEDS: Sodium Chloride 0.9% 1,000 ML IV SCH (21:39)
[2023-11-22] MEDS: LORazepam 2 MG/ML SDV IVPUSH ONE (22:08)
[2023-11-22 23:13] VITALS: BP 172/99; PULSE 95
== END 2023-11-23 00:21 | disposition home or self-care (01) ==
LOC: JP.ED 20:37
DX: R07.89 Other chest pain (principal); F41.9 Anxiety disorder, unspecified; I10 Essential (primary) hypertension; E11.9 Type 2 diabetes mellitus without complications; Z86.16 Personal history of COVID-19; Z79.899 Other long term (current) drug therapy; Z88.0 Allergy status to penicillin; Z88.1 Allergy status to other antibiotic agents; Z91.030 Bee allergy status
CPT/HCPCS: 0241U; 36415; 71046; 80053; 84484; 85025; 93005; 96361; 96374; 99285; A9270; J2060; J7030

== ENCOUNTER 2024-03-26 15:15 | Emergency (ER) | payer MEDICAID ==
[2024-03-26 15:41] LABS: EOSINOPHILS ABSOLUTE AUTO 0.27 K/uL (0.00-0.40); EOSINOPHILS PERCENT AUTO 2.7 % (0.0-5.4); HEMATOCRIT 47.3 % (38.4-49.7); IMMATURE GRAN ABSOLUTE AUTO 0.05 K/uL (0.00-0.23); IMMATURE GRAN PERCENT AUTO 0.5 % (0.0-0.7); LYMPHOCYTES ABSOLUTE AUTO 2.51 K/uL (0.8-3.3); LYMPHOCYTES PERCENT AUTO 24.8 % (11.4-47.7); MEAN CORPUSCULAR HEMOGLOBIN 30.9 pg (31.6-35.5); MEAN CORPUSCULAR HGB CONC 33.8 g/dL (31.6-35.5); MEAN CORPUSCULAR VOLUME 91.3 fL (81.4-99.0); MONOCYTES PERCENT AUTO 7.9 % (3.3-12.6); NEUTROPHILS ABSOLUTE AUTO 6.38 K/uL (1.0-7.6); NEUTROPHILS PERCENT AUTO 63.1 % (40.0-78.1); PLATELET COUNT,PLT 224 K/uL (130-375); RED BLOOD CELL COUNT 5.18 M/uL (4.14-5.76); WHITE BLOOD CELL COUNT,WBC 10.1 K/uL (3.2-11.0)
[2024-03-26 16:02] LABS: PROTHROMBIN TIME 10.4 sec (9.2-10.6); PTT,PARTIAL THROMBOPLSTIN TIME 24.6 sec (21.8-27.3)
[2024-03-26 16:05] LABS: ALANINE AMINOTRANSFERASE,ALT 66 U/L (12-78); ALBUMIN 3.7 g/dL (3.4-5.0); ALKALINE PHOSPHATASE 62 U/L (46-116); ANION GAP 7.2 mmol/L (5.0-14.0); ASPARTATE AMNIOTRANSFERASE,AST 26 U/L (15-37); BILIRUBIN TOTAL 0.3 mg/dL (0.2-1.0); BLOOD UREA NITROGEN,BUN 17 mg/dL (7-18); CALCIUM 9.8 mg/dL (8.5-10.1); CARBON DIOXIDE,CO2 29 mmol/L (21-32); CHLORIDE,CL 105 mmol/L (100-108); CREATININE 1.1 mg/dL (0.8-1.3); EST CRCL DRUG DOSING (CG) 99.64 mL/min; ESTIMATED GFR 85 mL/min (>60); GLUCOSE RANDOM 160 mg/dL (74-106); POTASSIUM,K 4.4 mmol/L (3.6-5.2); PROTEIN TOTAL,TP 7.5 g/dL (6.4-8.2); SODIUM,NA 141 mmol/L (140-148)
[2024-03-26] MEDS: Sodium Chloride 0.9% 1,000 ML IV ONE (16:29)
[2024-03-26 16:31] LABS: LYME AB IgG Negative (Negative); LYME AB IgM Negative (Negative)
[2024-03-26 17:24] VITALS: BP 141/96; PULSE 88
== END 2024-03-26 18:00 | disposition home or self-care (01) ==
LOC: JP.ED 15:15
DX: E86.0 Dehydration (principal); I10 Essential (primary) hypertension; E11.9 Type 2 diabetes mellitus without complications; E66.9 Obesity, unspecified; Z86.16 Personal history of COVID-19; Z90.49 Acquired absence of other specified parts of digestive tract; Z79.899 Other long term (current) drug therapy; Z88.0 Allergy status to penicillin; Z88.1 Allergy status to other antibiotic agents; Z88.8 Allergy status to other drugs, medicaments and biological substances; Z91.030 Bee allergy status; Z68.42 Body mass index [BMI] 45.0-49.9, adult
CPT/HCPCS: 36415; 70450; 80053; 80307; 84484; 85025; 85610; 85730; 86618; 87468; 87469; 87484; 87798; 93005; 93010; 96360; 99285; J7030

== ENCOUNTER 2024-10-13 07:42 | Emergency (ER) | payer MEDICAID ==
[2024-10-13 07:56] VITALS: BP 159/106; PULSE 90
== END 2024-10-13 08:30 | disposition home or self-care (01) ==
LOC: JP.ED 07:42
DX: M54.10 Radiculopathy, site unspecified (principal); I10 Essential (primary) hypertension; J45.909 Unspecified asthma, uncomplicated; E11.9 Type 2 diabetes mellitus without complications; E66.9 Obesity, unspecified; Z68.42 Body mass index [BMI] 45.0-49.9, adult; Z86.16 Personal history of COVID-19; Z90.49 Acquired absence of other specified parts of digestive tract; Z88.0 Allergy status to penicillin; Z88.1 Allergy status to other antibiotic agents; Z88.8 Allergy status to other drugs, medicaments and biological substances; Z91.030 Bee allergy status; Z79.51 Long term (current) use of inhaled steroids; Z79.899 Other long term (current) drug therapy
CPT/HCPCS: 99283

== ENCOUNTER 2024-11-19 06:03 | Day surgery (SDC) | payer MEDICAID ==
[2024-11-19] MEDS ORDERED: Bupivacaine 0.5% 50 ML MDV ONE (06:52)
[2024-11-19] MEDS: Nozin Nasal Sanitizer NASBOTH ONE (06:54)
[2024-11-19] MEDS: Lactated Ringers 1,000 ML IV SCH (06:54)
[2024-11-19] MEDS ORDERED: ceFAZolin 2 GM in Premix Bag 1 BAG IV ONE (07:00)
[2024-11-19] MEDS ORDERED: Bupivacaine 0.5% 30 ML SDV ONE (07:12)
[2024-11-19] MEDS ORDERED: Rocuronium 50 MG/5 ML Vial ONE (07:15)
[2024-11-19] MEDS ORDERED: Succinylcholine 200 MG/10 ML MDV ONE (07:15)
[2024-11-19] MEDS ORDERED: Ondansetron 4 MG/2 ML SDV ONE (07:15)
[2024-11-19] MEDS ORDERED: Neostigmine Methylsulfate 10 MG/10 ML MDV ONE (07:15)
[2024-11-19] MEDS ORDERED: Propofol 200 MG/20 ML SDV ONE (07:15)
[2024-11-19] MEDS ORDERED: Glycopyrrolate 0.2 MG/ML 5 ML MDV ONE (07:15)
[2024-11-19] MEDS ORDERED: Dexamethasone 4 MG/ML SDV ONE (07:15)
[2024-11-19] MEDS ORDERED: fentaNYL 250 MCG/5 ML SDV ONE (07:16)
[2024-11-19] MEDS ORDERED: Midazolam 1 MG/ML 2 ML SDV ONE (07:16)
[2024-11-19 07:24] LABS: HEMATOCRIT 44.7 % (38.4-49.7); HEMOGLOBIN 15.1 g/dL (12.9-16.9); MEAN CORPUSCULAR HEMOGLOBIN 31.2 pg (31.6-35.5); MEAN CORPUSCULAR HGB CONC 33.8 g/dL (31.6-35.5); MEAN CORPUSCULAR VOLUME 92.4 fL (81.4-99.0); RED BLOOD CELL COUNT 4.84 M/uL (4.14-5.76); WHITE BLOOD CELL COUNT,WBC 8.6 K/uL (3.2-11.0)
[2024-11-19 07:48] LABS: A/G RATIO 1.2 (1.2-2.2); ALANINE AMINOTRANSFERASE,ALT 64 U/L (12-78); ALBUMIN 3.6 g/dL (3.4-5.0); ALKALINE PHOSPHATASE 46 U/L (46-116); ANION GAP 8.4 mmol/L (5.0-14.0); ASPARTATE AMNIOTRANSFERASE,AST 18 U/L (15-37); BILIRUBIN TOTAL 0.3 mg/dL (0.2-1.0); BLOOD UREA NITROGEN,BUN 22 mg/dL (7-18); CALCIUM 9.4 mg/dL (8.5-10.1); CARBON DIOXIDE,CO2 29 mmol/L (21-32); CHLORIDE,CL 103 mmol/L (100-108); CREATININE 1.1 mg/dL (0.8-1.3); EST CRCL DRUG DOSING (CG) 101.36 mL/min; ESTIMATED GFR 84 mL/min (>60); GLUCOSE RANDOM 149 mg/dL (74-106); POTASSIUM,K 3.8 mmol/L (3.6-5.2); PROTEIN TOTAL,TP 6.7 g/dL (6.4-8.2); SODIUM,NA 140 mmol/L (140-148)
[2024-11-19] MEDS: Clindamycin in 0.9 % Sod Chlor 900 MG in Premix Bag 1 BAG IV ONE (08:36)
[2024-11-19] MEDS ORDERED: Lactated Ringers 1,000 ML ONE (08:56)
[2024-11-19] MEDS ORDERED: Sugammadex Sodium 200 MG/2 ML VIAL IV ONE (09:03)
[2024-11-19 13:34] VITALS: BP 121/75; PULSE 95
== END 2024-11-19 12:45 | disposition home or self-care (01) ==
LOC: JP.SDS 06:03
PROVIDERS: ATTEND Specialist
DX: M25.812 Other specified joint disorders, left shoulder (principal); E11.9 Type 2 diabetes mellitus without complications; I10 Essential (primary) hypertension; F41.9 Anxiety disorder, unspecified; K21.9 Gastro-esophageal reflux disease without esophagitis; E66.813 Obesity, class 3; E78.5 Hyperlipidemia, unspecified; Z79.4 Long term (current) use of insulin; Z79.84 Long term (current) use of oral hypoglycemic drugs; Z79.899 Other long term (current) drug therapy; Z88.0 Allergy status to penicillin; Z91.030 Bee allergy status
CPT/HCPCS: 01630-QZ; 36415; 80053; 85027; A9270-GY; C1713; J0330; J0665; J0737; J1100; J1596; J2250; J2405; J2704; J2710; J3010; J3490; J7120

== ENCOUNTER 2025-03-15 05:41 | Emergency (ER) | payer MEDICAID ==
[2025-03-15 06:45] LABS: BASOPHILS ABSOLUTE AUTO 0.05 K/uL (0.00-0.10); BASOPHILS PERCENT AUTO 0.4 % (0.1-1.3); EOSINOPHILS ABSOLUTE AUTO 0.17 K/uL (0.00-0.40); EOSINOPHILS PERCENT AUTO 1.3 % (0.0-5.4); HEMATOCRIT 50.5 % (38.4-49.7); HEMOGLOBIN 16.7 g/dL (12.9-16.9); IMMATURE GRAN ABSOLUTE AUTO 0.06 K/uL (0.00-0.23); IMMATURE GRAN PERCENT AUTO 0.5 % (0.0-0.7); LYMPHOCYTES ABSOLUTE AUTO 0.89 K/uL (0.8-3.3); LYMPHOCYTES PERCENT AUTO 6.8 % (11.4-47.7); MEAN CORPUSCULAR HEMOGLOBIN 31.5 pg (31.6-35.5); MEAN CORPUSCULAR HGB CONC 33.1 g/dL (31.6-35.5); MEAN CORPUSCULAR VOLUME 95.3 fL (81.4-99.0); MONOCYTES ABSOLUTE AUTO 0.88 K/uL (0.20-0.90); MONOCYTES PERCENT AUTO 6.7 % (3.3-12.6); NEUTROPHILS ABSOLUTE AUTO 11.04 K/uL (1.0-7.6); NEUTROPHILS PERCENT AUTO 84.3 % (40.0-78.1); PLATELET COUNT,PLT 238 K/uL (130-375); WHITE BLOOD CELL COUNT,WBC 13.1 K/uL (3.2-11.0)
[2025-03-15 07:05] LABS: ALANINE AMINOTRANSFERASE,ALT 68 U/L (12-78); ALBUMIN 3.7 g/dL (3.4-5.0); ALKALINE PHOSPHATASE 62 U/L (46-116); ASPARTATE AMNIOTRANSFERASE,AST 25 U/L (15-37); BILIRUBIN TOTAL 0.6 mg/dL (0.2-1.0); BLOOD UREA NITROGEN,BUN 20 mg/dL (7-18); CALCIUM 9.4 mg/dL (8.5-10.1); CARBON DIOXIDE,CO2 26 mmol/L (21-32); CHLORIDE,CL 104 mmol/L (100-108); EST CRCL DRUG DOSING (CG) 109.98 mL/min; ESTIMATED GFR 95 mL/min (>60); GLUCOSE RANDOM 158 mg/dL (74-106); POTASSIUM,K 4.3 mmol/L (3.6-5.2); PROTEIN TOTAL,TP 7.4 g/dL (6.4-8.2); SODIUM,NA 137 mmol/L (140-148)
[2025-03-15 07:16] VITALS: BP 130/81; PULSE 92
[2025-03-15 07:27] LABS: ANION GAP 11.3 mmol/L (5.0-14.0); C-REACTIVE PROTEIN < 0.50 mg/dL (<0.50)
[2025-03-15] MEDS: Iopamidol 612 MG/ML 100 ML Bottle IV SCH (07:48)
[2025-03-15] MEDS: Sodium Chloride 0.9% 100 ML IV SCH (07:49)
[2025-03-15] MEDS: Sodium Chloride 0.9% 10 ML Syringe FLUSH PRN (07:49)
== END 2025-03-15 08:41 | disposition home or self-care (01) ==
LOC: JP.ED 05:41
DX: K56.600 Partial intestinal obstruction, unspecified as to cause (principal); I10 Essential (primary) hypertension; J45.909 Unspecified asthma, uncomplicated; E11.9 Type 2 diabetes mellitus without complications; F17.210 Nicotine dependence, cigarettes, uncomplicated; Z86.16 Personal history of COVID-19; Z91.030 Bee allergy status; Z88.1 Allergy status to other antibiotic agents; Z88.8 Allergy status to other drugs, medicaments and biological substances; Z79.51 Long term (current) use of inhaled steroids; Z79.84 Long term (current) use of oral hypoglycemic drugs; Z79.85 Long-term (current) use of injectable non-insulin antidiabetic drugs
CPT/HCPCS: 36415; 74177; 80053; 83605; 83690; 85025; 86140; 99284; Q9967

== ENCOUNTER 2025-09-16 06:41 | Day surgery (SDC) | payer MEDICAID ==
[2025-09-16] MEDS: Lactated Ringers 1,000 ML IV SCH (06:55)
[2025-09-16 07:01] LABS: PLATELET COUNT,PLT 244.0 K/uL (130-375); RED BLOOD CELL COUNT 5.07 M/uL (4.14-5.76); WHITE BLOOD CELL COUNT,WBC 9.9 K/uL (3.2-11.0)
[2025-09-16 07:18] LABS: BLOOD UREA NITROGEN,BUN 18.0 mg/dL (7-18); CARBON DIOXIDE,CO2 30.0 mmol/L (21-32); CHLORIDE,CL 104.0 mmol/L (100-108); CREATININE 1.0 mg/dL (0.8-1.3); EST CRCL DRUG DOSING (CG) 105.82 mL/min; ESTIMATED GFR 94.0 mL/min (>60); GLUCOSE RANDOM 127.0 mg/dL (74-106); POTASSIUM,K 4.1 mmol/L (3.6-5.2); SODIUM,NA 141.0 mmol/L (140-148)
[2025-09-16] MEDS ORDERED: fentaNYL 250 MCG/5 ML SDV ONE (07:25)
[2025-09-16] MEDS: Nozin Nasal Sanitizer NASBOTH ONE (07:26)
[2025-09-16] MEDS ORDERED: Propofol 200 MG/20 ML SDV ONE (07:26)
[2025-09-16] MEDS ORDERED: Succinylcholine 200 MG/10 ML MDV ONE (07:26)
[2025-09-16] MEDS ORDERED: Dexamethasone 4 MG/ML SDV ONE (07:26)
[2025-09-16] MEDS ORDERED: Ondansetron 4 MG/2 ML SDV ONE (07:26)
[2025-09-16] MEDS: Clindamycin in 0.9 % Sod Chlor 900 MG in Premix Bag 1 BAG IV ONE (07:49)
[2025-09-16] MEDS ORDERED: Acetaminophen/oxyCODONE 325-5 MG Tab PO PRN (10:51)
[2025-09-16 12:54] VITALS: BP 110/68; PULSE 78
== END 2025-09-16 12:00 | disposition home or self-care (01) ==
LOC: JP.SDS 06:41
PROVIDERS: ATTEND Specialist
DX: M25.312 Other instability, left shoulder (principal); S43.432A Superior glenoid labrum lesion of left shoulder, initial encounter; I10 Essential (primary) hypertension; E11.9 Type 2 diabetes mellitus without complications; J45.909 Unspecified asthma, uncomplicated; E66.9 Obesity, unspecified; F32.A Depression, unspecified; F41.9 Anxiety disorder, unspecified; F17.210 Nicotine dependence, cigarettes, uncomplicated; Z79.899 Other long term (current) drug therapy; X58.XXXA Exposure to other specified factors, initial encounter
CPT/HCPCS: 01630-QZ; 36415; 80048; 82947; 85027; A9270-GY; C1713; J0330; J0665; J0737; J1100; J2405; J2704; J3010; J3490; J7120